=== PATIENT | male | born 1940 | race Caucasian/White ===

== ENCOUNTER 2018-11-10 00:17 | Inpatient (IN) ==
[2018-11-10] MEDS ORDERED: Famotidine 20 MG/2 ML VIAL IVP ONE (00:38)
[2018-11-10] MEDS ORDERED: Ondansetron 4 MG/2 ML VIAL IVP ONE (00:38)
--- NOTE | 2018-11-10 00:39 | Emergency Department Note ---
Disposition Clinical Impression: Vomiting, Dehydration Disposition: Admitted As Inpatient Condition: Fair Time of Disposition: 02:30 Nausea/Vomiting/Diarrhea HPI - General Chief complaint: ED Nausea/Vomiting/Diarrhea Stated complaint: vomiting Time Seen by Provider: 11/10/18 00:17 Source: patient Mode of arrival: ambulatory Limitations: no limitations Nursing Notes Reviewed: Yes Vital Signs Reviewed: Yes - History of Present Illness HPI Narrative: 78-year-old male who Val [employer] earlier today is now having nausea vomiting unable keep anything down vomiting according to the is dark brown in color patient states though is morbidly by Kimberly better taste he states his had some epigastric discomfort denies any rashes lesions denies any blurred vision double loss denies black tarry or melanotic stools patient's been having some generalized myalgias he denies any fever chills trauma denies anything makes it better eating makes it worse is had similar episodes recently all systems have been reviewed and are otherwise negative Pt Subjective Complaint: nausea, vomiting, abdominal pain Onset (ago): hour(s) Description of emesis: food contents If pain, Location of pain: epigastric Severity: moderate Quality: aching Consistency: constant Improves with: nothing Worsens with: eating Context: possible food poisoning (Patient ate fish same range at the [employer] unsure if this is a source for the pain) Associated symptoms: Reports: malaise, nausea/vomiting, weakness. Denies: myalg ias, chest pain, cough, diaphoresis, fever/chills, headaches, loss of appetite, rash, dysuria, shortness of breath, syncope - Related Data Allergies Allergy/AdvReac Type Severity Reaction Status Date / Time No Known Allergies Allergy Verified 11/10/18 00:22 All systems ED: reviewed and negative except as stated. Review of Systems: As Per HPI Constitutional: Reports: weakness. Denies: fever, chills Eyes: Denies: eye pain, eye discharge ENT ED: Denies: ear pain, throat pain Cardiovascular: Denies: chest pain, palpitations Respiratory: Denies: cough, dyspnea, wheezes Gastrointestinal: Reports: abdominal pain, nausea, vomiting Genitourinary: Denies: urgency, dysuria, frequency Musculoskeletal: Denies: back pain, neck pain Integumentary: Denies: rash Neurological: Denies: headache Psychiatric: Denies: anxiety Endocrine: Denies: fatigue Hematological/Lymphatic: Denies: easy bleeding Allergic/Immunologic: Denies: facial swelling Past Medical History - Past Medical History Attestation: Yes The following information was validated with the patient. Source: patient, old records reviewed, nursing notes reviewed Medical history: Reports: no medical history Psychiatric history: Reports: no psych history - Social History Smoking Status: Never smoker Drug use: Reports: none Physical Exam - General Limitations: no limitations General appearance: alert, in no apparent distress - Head Head exam: atraumatic, normocephalic, normal inspection - Eye Eye exam: Present: normal appearance, PERRL, EOMI - ENT ENT exam: normal exam, normal oropharynx, mucous membranes moist, TM's normal bilaterally, normal external ear exam - Neck Neck exam: Present: normal inspection, full ROM, trachea midline - Chest Chest inspection: Present: normal inspection, symmetric chest wall rise - Respiratory Respiratory exam: Present: normal lung sounds bilaterally - Cardiovascular Cardiovascular exam: Present: regular rate, normal rhythm, normal heart sounds - Abdominal Exam Abdominal exam: Present: soft, tenderness, distention, normal bowel sounds. Absent: guarding, rebound, rigidity, mass, pulsatile mass Abdominal tenderness: Present: epigastrium, mild - Rectal Exam Infant Teacher present during exam: No - Expanded Upper Extremity Exam Shoulder exam: Present: normal inspection, full ROM Arm exam: Present: normal inspection, full ROM Elbow exam: Present: normal inspection, full ROM Forearm/Wrist exam: Present: normal inspection, full ROM Hand exam: Present: normal inspection, full ROM Vascular exam: Normal: capillary refill, radial pulse - Expanded Lower Extremity Exam Hip/Pelvis exam: Present: normal inspection, full ROM Upper leg exam: Present: normal inspection, full ROM Knee exam: Present: normal inspection, full ROM Lower leg exam: Present: normal inspection, full ROM Ankle exam: Present: normal inspection, full ROM Foot/toe exam: Present: normal inspection, full ROM Neurovascular/Tendon exam: Present: normal capillary refill, normal fine/light touch. Absent: motor deficit, sensory deficit, tendon deficit Gait: observed and normal - Back Exam Back exam: Present: normal inspection, full ROM. Absent: muscle spasm - Neurological Exam Neurological exam: Present: alert, oriented X3, CN II-XII intact, normal gait - Psychiatric Psychiatric exam: Present: normal affect, normal mood - Skin Skin exam: Present: warm, dry, intact, normal color Course Course Narrative: Patient was seen and evaluated examinations performed patient vomited material appears to be just more of a dirty bile colored though the states that it is brown in color as result patient received Zofran patient is resting comfortably patient will be admitted to observation versus is low transferred to [facility] Vital Signs Temperature 98.0 F 11/10/18 00:17 Pulse Rate 100 11/10/18 00:17 Respiratory Rate 18 11/10/18 00:17 Blood Pressure 147/90 11/10/18 00:17 O2 Sat by Pulse Oximetry 95 11/10/18 00:17 Temperature 98.0 F 11/10/18 00:17 Pulse Rate 98 11/10/18 01:56 Respiratory Rate 16 11/10/18 01:56 Blood Pressure 141/77 11/10/18 01:56 O2 Sat by Pulse Oximetry 95 11/10/18 01:56 Oxygen Delivery Oxygen Delivery Room Air Nausea/Vomiting/Diarrhea - Differential Diagnosis Likely: food poisoning, dehydration - Medical Records Medical records reviewed: Yes I reviewed the patient's medical records. - Lab Data Lab results reviewed: Yes I reviewed the patient's lab results. Result diagrams: 11/10/18 01:00 11/10/18 01:00 Lab Results 11/10/18 11/10/18 11/10/18 Range/Units 01:00 01:00 01:00 WBC 15.4 H (4.3-11.1) K/mcL RBC 5.22 (4.19-5.50) M/mcL Hgb 15.7 (12.9-16.9) g/dL Hct 44.5 (37.5-50.1) % MCV 85.2 (83.0-100.0) fL MCH 30.1 (28.0-33.3) pg MCHC 35.3 (31.6-35.5) g/dL RDW 13.8 (11.5-14.5) % Plt Count 192 (140-400) K/mcL MPV 9.0 L (9.4-12.4) fL Immature Gran % 0.8 (0-4) % Seg Neutrophils % 85.4 % Lymphocytes % 5.6 % Monocytes % 7.9 % Eosinophils % 0.0 % Basophils % 0.3 % Neutrophils # 13.2 H (1.6-8.9) K/mcL Lymphocytes # 0.9 (0.6-4.6) K/mcL Monocytes # 1.2 (0.0-1.3) K/mcL Eosinophils # 0.0 (0.0-0.6) K/mcL Basophils # 0.1 (0.0-0.2) K/mcL PT 15.0 H (9.4-12.1) Seconds INR 1.3 APTT 30.8 (26.0-36.0) Seconds Sodium 135 L (136-145) mEq/L Potassium 3.8 (3.5-5.1) mEq/L Chloride 102 (98-107) mEq/L Carbon Dioxide 23 (23-29) mEq/L BUN 15 (8-23) mg/dL Creatinine 1.02 (0.70-1.30) mg/dL Est GFR ( Amer) > 60 (> 60) Est GFR (Non-Af Amer) > 60 (> 60) BUN/Creatinine Ratio 15 (6-26) Glucose 160 H (70-105) mg/dL Calculated Osmolality 284 (280-300) Calcium 9.1 (8.6-10.3) mg/dL Total Bilirubin 1.4 H (0.3-1.0) mg/dL AST 17 (13-39) Units/L ALT 15 (7-52) Units/L Alkaline Phosphatase 46 (34-104) Units/L Serum Total Protein 7.0 (6.4-8.9) g/dL Albumin 4.2 (3.5-5.7) g/dL Globulin 2.8 (2.4-3.5) g/dL Albumin/Globulin Ratio 1.5 (1.1-2.2) Lipase 42 (11-82) Units/L - Radiology Data Radiology results reviewed: Yes I reviewed the patient's radiology results. ITS Impressions Chest/Abdomen X-ray 11/10/18 00:38 IMPRESSION: 1. No acute cardiopulmonary abnormality. 2. Nonspecific, nonobstructive bowel gas pattern. D/ / Tyson Justice MD / Tyson Justice MD Interpreting Provider: Tyson Justice MD Critical Care Time Critical Care Time: No
[2018-11-10] MEDS ORDERED: 0.9 % Sodium Chloride 1,000 ML IVC SCH (00:45)
[2018-11-10 01:08] LABS: Basophils # 0.1 K/mcL (0.0-0.2); Basophils % 0.3 %; Hematocrit 44.5 % (37.5-50.1); Hemoglobin 15.7 g/dL (12.9-16.9); Immature Granulocytes % 0.8 % (0-4); Lymphocytes # 0.9 K/mcL (0.6-4.6); Lymphocytes % 5.6 %; Mean Corpuscular HGB Conc 35.3 g/dL (31.6-35.5); Mean Corpuscular Hemoglobin 30.1 pg (28.0-33.3); Mean Corpuscular Volume 85.2 fL (83.0-100.0); Monocytes # 1.2 K/mcL (0.0-1.3); Monocytes % 7.9 %; Neutrophils # 13.2 K/mcL (1.6-8.9); Platelet Count 192 K/mcL (140-400); Red Blood Count 5.22 M/mcL (4.19-5.50); Red Cell Distribution Width 13.8 % (11.5-14.5); Segmented Neutrophils % 85.4 %; White Blood Count 15.4 K/mcL (4.3-11.1)
[2018-11-10 01:17] LABS: INR 1.3
[2018-11-10 01:20] LABS: Activated Partial Thrombo Time 30.8 Seconds (26.0-36.0)
[2018-11-10 01:29] LABS: Alanine Aminotransferase 15 Units/L (7-52); Albumin 4.2 g/dL (3.5-5.7); Albumin/Globulin Ratio 1.5 (1.1-2.2); Alkaline Phosphatase 46 Units/L (34-104); Aspartate Amino Transferase 17 Units/L (13-39); BUN/Creatinine Ratio 15 (6-26); Bilirubin,Total 1.4 mg/dL (0.3-1.0); Blood Urea Nitrogen 15 mg/dL (8-23); Calcium 9.1 mg/dL (8.6-10.3); Carbon Dioxide 23 mEq/L (23-29); Chloride 102 mEq/L (98-107); Globulin 2.8 g/dL (2.4-3.5); Glucose 160 mg/dL (70-105); Lipase 42 Units/L (11-82); Osmolality,Calculated 284 (280-300); Potassium 3.8 mEq/L (3.5-5.1); Sodium 135 mEq/L (136-145); eGFR For African Americans > 60 (> 60); eGFR For Non-African Americans > 60 (> 60)
[2018-11-10] MEDS: 0.9 % Sodium Chloride 1,000 ML IVC SCH ×2 (02:48→10:20)
[2018-11-10] MEDS ORDERED: Naloxone 0.4 MG/ML INJ IVP PRN (02:48)
[2018-11-10] MEDS ORDERED: Ondansetron 4 MG/2 ML VIAL IVP PRN (02:48)
[2018-11-10 06:37] LABS: BUN/Creatinine Ratio 14 (6-26); Blood Urea Nitrogen 14 mg/dL (8-23); Calcium 8.7 mg/dL (8.6-10.3); Carbon Dioxide 24 mEq/L (23-29); Chloride 104 mEq/L (98-107); Glucose 130 mg/dL (70-105); Osmolality,Calculated 286 (280-300); Potassium 3.9 mEq/L (3.5-5.1); Sodium 137 mEq/L (136-145); eGFR For African Americans > 60 (> 60); eGFR For Non-African Americans > 60 (> 60)
[2018-11-10 09:13] LABS: Basophils % 0.2 %; Eosinophils % 0.1 %; Hematocrit 41.9 % (37.5-50.1); Hemoglobin 14.4 g/dL (12.9-16.9); Immature Granulocytes % 0.8 % (0-4); Lymphocytes # 1.5 K/mcL (0.6-4.6); Lymphocytes % 9.7 %; Mean Corpuscular HGB Conc 34.4 g/dL (31.6-35.5); Mean Corpuscular Hemoglobin 29.9 pg (28.0-33.3); Mean Corpuscular Volume 86.9 fL (83.0-100.0); Mean Platelet Volume 9.2 fL (9.4-12.4); Monocytes % 6.4 %; Platelet Count 180 K/mcL (140-400); Red Blood Count 4.82 M/mcL (4.19-5.50); Red Cell Distribution Width 14.1 % (11.5-14.5); Segmented Neutrophils % 82.8 %; White Blood Count 15.7 K/mcL (4.3-11.1)
--- NOTE | 2018-11-10 14:08 | Internal Med History&Physical ---
Date of Encounter: 11/10/18 Time of Encounter: 13:30 Assessment and Plan (1) Vomiting Current visit: Yes Status: Acute Suspect viral gastroenteritis. IV fluids will be given. Antiemetics will be used as needed. Qualifiers: Vomiting type: unspecified Vomiting Intractability: non-intractable Nausea presence: unspecified Qualified Code(s): R11.10 - Vomiting, unspecified (2) Multiple falls Current visit: Yes Status: Acute I recommended he follow with his neurologist for additional workup for possible normal pressure hydrocephalus. Internal Medicine - H&P: HPI Chief complaint: Vomiting Admitted From: Emergency Dept Plans for Post Hospital Care: Home History of present illness: Mr. Lou is a 78 year old male who came to emergency room stating he had multiple episodes of vomiting onset approximate 1400 on November 09. He reports at least one episode of vomiting had dark material. A family member told him the dark material might represent blood. Patient came to emergency room and was evaluated and admitted to [facility] for ongoing care needs. He states he has not vomited for approximately 12 hours but is experiencing nausea at this time. He denies any bright red blood or abdominal pain. He reports feeling chilled at home prior to coming to the hospital. He denies disorders of his liver gallbladder or exocrine pancreas. He denies other family members with similar illnesses. He has eaten no unusual foods or had any unusual travel recently. Past Med Surg Social Fam HX - Past Medical History Medical history: no medical history Psychiatric history: no psych history - Past Surgical History Additional surgical history: hernia surgery - Social History Smoking Status: Never smoker Drug use: none Internal Medicine - H&P: Meds Allergy/AdvReac Type Severity Reaction Status Date / Time No Known Allergies Allergy Verified 11/10/18 00:22 All Systems PM: A 10-system review of systems was performed and is negative for pertinent findings except as documented above in the HPI. Review of systems: Gen.: His weight has been stable for several years Cardiovascular: He denies hypertension [place] heart failure angina DVT or pulmonary embolus Respiratory: He is a lifelong nonsmoker and denies chronic lung disease GI: He denies disorders of his liver gallbladder or exocrine pancreas : He has BPH symptoms with frequent urination and occasional urinary incontinence. He denies other kidney bladder prostate disorders Neurologic: He denies large distribution strokes or seizures. He has occasional muscle weakness and frequently feels off balance and has had multiple falls. He had brain MRI 01/19/2016 which showed ventricular prominence with mild diffuse atrophy. He has not seen the [facility] neurologist who ordered the MRI in over 2 years. Endocrine: He was told he had borderline hyperlipidemia in the past. He denies diabetes or thyroid disease Hematology/oncology: He denies blood disorders cancers or anemia Psychiatric: He denies anxiety depression or other mental health issues [place] skeletal: He reports he had a spinal compression fracture in 2016. He denies gout or other bone joint or muscle disorders. - Constitutional Vitals: Temp Pulse Resp BP Pulse Ox 98.6 F 77 18 132/74 95 11/10/18 10:32 11/10/18 10:32 11/10/18 10:32 11/10/18 10:32 11/10/18 10:32 Exam: Gen.: He is a well-developed well-nourished male resting comfortably in bed who appears in no acute distress at present time HEENT: Head is atraumatic and normocephalic. Eyes: EOMI. There is no scleral icterus. Mouth: Mucosa is moist. Neck: Supple and nontender. There is no thyromegaly or adenopathy noted. Heart: Regular without murmurs gallops or ectopics Lungs: No wheezes or crackles are heard. Abdomen: Soft and nontender. Bowel sounds are present. No masses or guarding are noted. Extremities: There is no cyanosis edema or clubbing noted. Dorsalis pedis and posterior tibial pulses are 1-2 over 2 bilaterally. Neurologic: Mental status: He is talkative and a good historian. Cranial nerves: Smile is symmetric. Forehead wrinkles bilaterally. Tongue protrudes midline. EOMI. Motor: There is no pronator drift. Cerebellar: Finger to nose is intact bilaterally. Skin: Warm and dry Internal Med - H&P Results - Labs CBC & Chem 7: 11/10/18 09:04 11/10/18 05:20 Labs: Short CBC 11/10/18 11/10/18 Range/Units 01:00 09:04 WBC 15.4 H 15.7 H (4.3-11.1) K/mcL Hgb 15.7 14.4 (12.9-16.9) g/dL Hct 44.5 41.9 (37.5-50.1) % Plt Count 192 180 (140-400) K/mcL Neutrophils # 13.2 H 13.0 H (1.6-8.9) K/mcL BMP 11/10/18 11/10/18 01:00 05:20 Sodium 135 L 137 Potassium 3.8 3.9 Chloride 102 104 Carbon Dioxide 23 24 BUN 15 14 Creatinine 1.02 0.98 Glucose 160 H 130 H Calcium 9.1 8.7 Liver Function 11/10/18 Range/Units 01:00 Total Bilirubin 1.4 H (0.3-1.0) mg/dL AST 17 (13-39) Units/L ALT 15 (7-52) Units/L Alkaline Phosphatase 46 (34-104) Units/L Albumin 4.2 (3.5-5.7) g/dL - Impressions ITS Impressions Chest/Abdomen X-ray 11/10/18 00:38 IMPRESSION: 1. No acute cardiopulmonary abnormality. 2. Nonspecific, nonobstructive bowel gas pattern. D/ / Tyson Justice MD / Tyson Justice MD Interpreting Provider: Tyson Justice MD Abdomen/Pelvis CT 11/10/18 01:46 Pelvis: Prominent impression upon the bladder by prostate that measures 5.2 x 5.0 cm. Calcification within prostate. No inguinal adenopathy. Peritoneum/Retroperitoneum: No free air. Bones/Soft Tissues: Remote appearing left L4 transverse process fracture. L1 superior endplate fracture, which had been described on report of prior MR dated 02/17/2016. IMPRESSION: No evidence of obstructing renal calculus. Prostatomegaly. Correlate with urologic history. Small hiatal hernia. D/ / Triston Mckeon MD / Triston Mckeon MD Interpreting Provider: Triston Mckeon MD
[2018-11-10] MEDS: Ondansetron 4 MG/2 ML VIAL IVP PRN ×3 (14:14→23:29)
[2018-11-10] MEDS: 0.45 % Sodium Chloride w/KCl 20 MEQ/1,000 ML MLS IVC SCH ×2 (15:06→23:30)
[2018-11-10] MEDS ORDERED: Acetaminophen 325 MG TABLET PO PRN (22:53)
[2018-11-10] MEDS ORDERED: cefTRIAXone 1,000 MG in Water for inj. (sterile) 10 ML IVP ONE (22:55)
[2018-11-11] MEDS ORDERED: *HR* Propranolol 1 MG/ML VIAL IVP STA (00:20)
[2018-11-11] MEDS ORDERED: 0.9 % Sodium Chloride 1,000 ML ONE (00:34)
[2018-11-11] MEDS ORDERED: *HR* Promethazine 25 MG/ML VIAL IM ONE (00:35)
[2018-11-11] MEDS ORDERED: Acetaminophen 325 MG TABLET PO STA (00:45)
[2018-11-11] MEDS ORDERED: Ibuprofen 800 MG TABLET PO STA (00:47)
[2018-11-11 00:52] LABS: Basophils % 0.2 %; Hematocrit 42.4 % (37.5-50.1); Hemoglobin 14.6 g/dL (12.9-16.9); Lymphocytes # 0.9 K/mcL (0.6-4.6); Mean Corpuscular HGB Conc 34.4 g/dL (31.6-35.5); Mean Corpuscular Hemoglobin 29.9 pg (28.0-33.3); Mean Corpuscular Volume 86.9 fL (83.0-100.0); Mean Platelet Volume 9.5 fL (9.4-12.4); Monocytes # 0.6 K/mcL (0.0-1.3); Monocytes % 4.7 %; Neutrophils # 11.5 K/mcL (1.6-8.9); Platelet Count 165 K/mcL (140-400); Red Blood Count 4.88 M/mcL (4.19-5.50); Red Cell Distribution Width 14.1 % (11.5-14.5); Segmented Neutrophils % 87.1 %; White Blood Count 13.2 K/mcL (4.3-11.1)
[2018-11-11 01:01] LABS: Bilirubin,Urine Negative (Negative); Blood,Urine Moderate (Negative); Clarity,Urine Cloudy (Clear); Color,Urine Yellow (Yellow); Glucose,Urine (UA) 100 mg/dL (Normal); Ketones,Urine 40 mg/dL (Negative); Leukocyte Esterase,Urine Trace (Negative); Nitrite,Urine Negative (Negative); Protein,Urine 100 mg/dL (Neg-Trace); Urobilinogen,Urine Normal (Normal)
[2018-11-11 01:04] LABS: Alanine Aminotransferase 20 Units/L (7-52); Albumin 3.7 g/dL (3.5-5.7); Albumin/Globulin Ratio 1.3 (1.1-2.2); Alkaline Phosphatase 49 Units/L (34-104); Aspartate Amino Transferase 31 Units/L (13-39); BUN/Creatinine Ratio 13 (6-26); Bilirubin,Total 1.5 mg/dL (0.3-1.0); Blood Urea Nitrogen 14 mg/dL (8-23); Calcium 8.2 mg/dL (8.6-10.3); Carbon Dioxide 22 mEq/L (23-29); Chloride 104 mEq/L (98-107); Globulin 2.8 g/dL (2.4-3.5); Glucose 148 mg/dL (70-105); Lipase 9 Units/L (11-82); Osmolality,Calculated 279 (280-300); Potassium 4.1 mEq/L (3.5-5.1); Sodium 133 mEq/L (136-145); Total Protein 6.5 g/dL (6.4-8.9); eGFR For African Americans > 60 (> 60); eGFR For Non-African Americans > 60 (> 60)
[2018-11-11] MEDS ORDERED: Isovue-370 500 ML BOTTLE IVP ONE (01:07)
[2018-11-11 01:09] LABS: Granular Casts,Urine Few per lpf (None Seen); Hyaline Casts,Urine Few per lpf (None-Few); Squamous Epithelial Cell,Urine Few per lpf (None-Few)
[2018-11-11 01:10] LABS: Bacteria,Urine Many per hpf (None-Few)
[2018-11-11 01:11] LABS: RBC,Urine 30-50 per hpf (0-3)
[2018-11-11 01:12] LABS: Mucus,Urine Many (Few); WBC,Urine 50-100 per hpf (0-3)
--- NOTE | 2018-11-11 01:39 | Emergency Department Note ---
START Narrative - START START: Responded to a rapid response on this patient that was activated by inpatient nursing staff. On arrival to the floor nursing staff reported that patient has a fever of 106.4 rectally, is tachycardic and less responsive than usual and was trembling. Patient was admitted approximately 24 hours ago with nausea and vomiting with concern for a possible ileus. Nursing staff report patient was advanced to a regular diet during the day today despite having some nausea after clear liquids. He then had some vomiting that they described as projectile earlier this evening around 7 PM. He was given Zofran. Around 11:30 PM he was found to have a fever of 102.6 axillary. He was given 650 mg of Tylenol and Zofran again for reported nausea as well as a gram of Rocephin per the hospitalist's orders. He also ordered Inderal and Solu-Medrol that had not yet been given. Nursing staff report that patient had normal mentation at his last vital check at 11:30. On my arrival patient lying in bed with his eyes closed but responds to voice. He denies any pain. Abdomen is soft and not distended but bowel sounds are diminished. Lungs are clear to auscultation. Heart rate was 125. Blood pressure was 120s/80s. Ice packs were placed in patient's axilla and groin and a cooling blanket was applied. Orders were given for additional Tylenol and ibuprofen as well as chest x-ray and KUB. Blood had been drawn at 11:30 including blood cultures but no lab orders had been received yet other than a BNP and pro-calcitonin ordered previously by the hospitalist. Orders given for CBC, CMP, lipase and lactic acid. Patient will be catheterized for urine as well as he has not had a urinalysis since arrival. With continued questioning patient became more alert and was oriented and recognized staff. With review of systems he does report nausea but denies any abdominal pain still. He did admit to some shortness of breath but cannot tell me when it started. Nursing staff states when they found the patient febrile and shivering his oxygen saturation was 84% on room air. He improved to 95% on 2 L. He did not previously reported any shortness of breath and has had normal oxygen saturations throughout his admission. I spoke to the hospitalist on-call, Dr. Hopkins, to update him on the rapid response, patient condition and all orders that have been given. He did not request any additional orders. Chest x-ray shows only bibasilar atelectasis versus pneumonitis but no obvious focal consolidation. KUB did not show any free air and only nonspecific bowel gas pattern. Will obtain CT scan of the abdomen with contrast. Urinalysis shows some blood and trace leukocyte esterase along with protein, glucose, ketones, moderate blood, many bacteria and 50-100 white blood cells this may be the source of his fever. His white blood cell count is 13.2 which is actually down from 15 shortly after admission. Lactic acid is 1.1. CMP is grossly unchanged compared to admission. Lipase is normal. BNP that was ordered by the hospitalist is 174. CT scan of the abdomen shows some bilateral perinephric stranding that would indicate pyelonephritis. This would correlate with his urinalysis findings. There are no other new changes on the CT scan regarding any source of infection or other acute process. Patient has already received a gram of Rocephin this evening. Temperature continues to come down with active cooling, Tylenol and ibuprofen. Will have nursing staff remove cooling blanket when temperature reaches 100. I talked with nursing staff again advising them of all test results I had reviewed and my impressions. They will continue close monitoring of the patient and will update the hospitalist on all test results. They are advised to contact me again in the ER for any additional needs for this patient.
[2018-11-11] MEDS ORDERED: levoFLOXacin 750 MG/150 ML 750 MG/150 ML BAG IVPB ONE (02:39)
[2018-11-11] MEDS: 0.9 % Sodium Chloride 1,000 ML IV ONE ×2 (03:51→07:27)
[2018-11-11] MEDS ORDERED: 0.45 % Sodium Chloride w/KCl 20 MEQ/1,000 ML MLS IVC SCH (04:15)
[2018-11-11] MEDS ORDERED: methylPREDNISolone 125 MG/2 ML VIAL IVP SCH (08:00)
--- NOTE | 2018-11-11 12:40 | Internal Med Progress Note ---
Date of Encounter: 11/11/18 Time of Encounter: 12:25 - Assessment and plan (1) Pyelonephritis Current Visit: Yes Status: Acute Assessment and plan: Urine and blood cultures have been ordered. Continue empiric IV Rocephin and Levaquin with lactobacillus. (2) Vomiting Current Visit: Yes Status: Acute Assessment and plan: November 11. Now resolved. Continue to monitor. Qualifiers: Vomiting type: unspecified Vomiting Intractability: non-intractable Nausea presence: unspecified Qualified Code(s): R11.10 - Vomiting, unspecified (3) Multiple falls Current Visit: Yes Status: Acute Assessment and plan: November 11. He will follow up with neurologist after discharge for further evaluation for possible NPH. - Subjective Interval history: November 11. He has no new complaints at present time and feels well. Rapid response was called last evening because of fever of 106.4 rectally with decreas ed responsiveness and tachycardia. Workup including abdominal/pelvic CT showed possible pyelonephritis. Rocephin and Levaquin were given IV. Cooling measures were given. He has no new complaints now and feels back to his baseline. - Constitutional Vitals: Temp Pulse Resp BP Pulse Ox 97.5 F L 80 18 109/71 96 11/11/18 10:12 11/11/18 10:12 11/11/18 10:12 11/11/18 10:12 11/11/18 10:12 Exam: He is sitting on the side of the bed resting comfortably. His affect is bright and cheerful. He is appropriate in conversation. I reviewed his medications and lab results. Internal Medicine: Result - Labs CBC & Chem 7: 11/10/18 23:08 11/10/18 23:08 Labs: Short CBC 11/10/18 Range/Units 23:08 WBC 13.2 H (4.3-11.1) K/mcL Hgb 14.6 (12.9-16.9) g/dL Hct 42.4 (37.5-50.1) % Plt Count 165 (140-400) K/mcL Neutrophils # 11.5 H (1.6-8.9) K/mcL BMP 11/10/18 23:08 Sodium 133 L Potassium 4.1 Chloride 104 Carbon Dioxide 22 L BUN 14 Creatinine 1.08 Glucose 148 H Calcium 8.2 L Liver Function 11/10/18 Range/Units 23:08 Total Bilirubin 1.5 H (0.3-1.0) mg/dL AST 31 (13-39) Units/L ALT 20 (7-52) Units/L Alkaline Phosphatase 49 (34-104) Units/L Albumin 3.7 (3.5-5.7) g/dL Urine 11/11/18 Range/Units 00:50 Urine Color Yellow (Yellow) Urine Clarity Cloudy A (Clear) Urine pH 5.0 (5.0-8.0) pH Units Ur Specific Rebuck 1.020 (1.010-1.025) Urine Protein 100 H (Neg-Trace) mg/dL Urine Glucose (UA) 100 H (Normal) mg/dL - ABG Interpretation ABG results: PT/INR, D-dimer PT 15.0 Seconds (9.4-12.1) H 11/10/18 01:00 - Impressions Impressions Chest X-Ray 11/11/18 00:43 IMPRESSION: Bibasilar atelectasis or pneumonitis. Nonspecific bowel gas pattern. Hyperdense sponge like density is seen superior to the left shoulder, potentially artifact though suggest correlation with physical examination to ensure the absence of an underlying supraclavicular mass. D/ / Triston Mckeon MD / Triston Mckeon MD Interpreting Provider: Triston Mckeon MD X-Ray 11/11/18 00:43 IMPRESSION: Bibasilar atelectasis or pneumonitis. Nonspecific bowel gas pattern. Hyperdense sponge like density is seen superior to the left shoulder, potentially artifact though suggest correlation with physical examination to ensure the absence of an underlying supraclavicular mass. D/ / Triston Mckeon MD / Triston Mckeon MD Interpreting Provider: Triston Mckeon MD Abdomen/Pelvis CT 11/11/18 01:07 Pelvis: Prostatomegaly. Prominent impression upon the bladder. No inguinal adenopathy. Peritoneum/Retroperitoneum: No free air. Bones/Soft Tissues: Remote appearing left L4 transverse process fracture. Superior endplate concavity at L1 again noted. IMPRESSION: Trace bilateral pleural effusions with bibasilar atelectasis or pneumonitis. Prostatomegaly. Correlate with urologic history. Suboptimal visualization of the appendix. Mild bilateral perinephric stranding. If there is clinical concern for pyelonephritis, suggest correlation with urinalysis. D/ / Triston Mckeon MD / Triston Mckeon MD Interpreting Provider: Triston Mckeon MD Consult Discharge Plan - Plan Referrals: Sandhya Hewitt, JIGAR [Primary Care Provider] - 1 week
[2018-11-11] MEDS ORDERED: cefTRIAXone 1,000 MG in Water for inj. (sterile) 10 ML IVP SCH (13:00)
[2018-11-11] MEDS: 0.45 % Sodium Chloride w/KCl 20 MEQ/1,000 ML MLS IVC SCH (14:08)
[2018-11-11 16:41] LABS: Acinetobacter baumannii by PCR Not Detected (Not Detect); Candida albicans by PCR Not Detected (Not Detect); Candida glabrata by PCR Not Detected (Not Detect); Candida krusei by PCR Not Detected (Not Detect); Candida parapsilosis by PCR Not Detected (Not Detect); Candida tropicalis by PCR Not Detected (Not Detect); Enterobacter cloacae Cmplx PCR Not Detected (Not Detect); Enterobacteriaceae by PCR DETECTED (Not Detect); Enterococcus by PCR Not Detected (Not Detect); Escherichia coli by PCR DETECTED (Not Detect); Klebsiella oxytoca by PCR Not Detected (Not Detect); Klebsiella pneumoniae by PCR Not Detected (Not Detect); Proteus by PCR Not Detected (Not Detect); Pseudomonas aeruginosa by PCR Not Detected (Not Detect); Serratia marcescens by PCR Not Detected (Not Detect); Staphylococcus aureus by PCR Not Detected (Not Detect); Staphylococcus by PCR Not Detected (Not Detect); Streptococcus agalactiae(B)PCR Not Detected (Not Detect); Streptococcus by PCR Not Detected (Not Detect); Streptococcus pneumoniae PCR Not Detected (Not Detect); Streptococcus pyogenes (A) PCR Not Detected (Not Detect); blaKPC Carbapenem-Resist Gene Not Detected (Not Detect)
[2018-11-11] MEDS: Lactobacillus 1 EACH CAP.SPRINK PO SCH (20:57)
[2018-11-12] MEDS: 0.45 % Sodium Chloride w/KCl 20 MEQ/1,000 ML MLS IVC SCH (03:39)
[2018-11-12] MEDS: *HR* Enoxaparin 40 MG/0.4 ML SYRINGE SQ SCH (05:30)
[2018-11-12 05:36] LABS: Hematocrit 40.2 % (37.5-50.1); Hemoglobin 13.9 g/dL (12.9-16.9); Lymphocytes # 1.3 K/mcL (0.6-4.6); Mean Corpuscular HGB Conc 34.6 g/dL (31.6-35.5); Mean Corpuscular Hemoglobin 29.9 pg (28.0-33.3); Mean Corpuscular Volume 86.5 fL (83.0-100.0); Mean Platelet Volume 9.9 fL (9.4-12.4); Platelet Count 115 K/mcL (140-400); Red Blood Count 4.65 M/mcL (4.19-5.50); Red Cell Distribution Width 14.7 % (11.5-14.5); White Blood Count 10.8 K/mcL (4.3-11.1)
[2018-11-12 06:02] LABS: BUN/Creatinine Ratio 18 (6-26); Blood Urea Nitrogen 16 mg/dL (8-23); Carbon Dioxide 21 mEq/L (23-29); Chloride 107 mEq/L (98-107); Glucose 104 mg/dL (70-105); Osmolality,Calculated 281 (280-300); Potassium 3.9 mEq/L (3.5-5.1); Sodium 135 mEq/L (136-145); eGFR For African Americans > 60 (> 60); eGFR For Non-African Americans > 60 (> 60)
[2018-11-12 06:26] LABS: Monocytes # 1.7 K/mcL (0.0-1.3); Neutrophils # 7.8 K/mcL (1.6-8.9)
[2018-11-12 06:27] LABS: Anisocytosis 1+ (Not Present); Dohle Bodies Present (Not Present); Large Platelets Present (Not Present); Platelet Clumps Few (Not Present); Platelet Estimate Decreased (Normal); Toxic Vacuolation Present (Not Present)
[2018-11-12 06:29] LABS: Poikilocytosis 1+ (Not Present)
[2018-11-12] MEDS: Lactobacillus 1 EACH CAP.SPRINK PO SCH ×2 (09:54→21:03)
--- NOTE | 2018-11-12 10:30 | Internal Med Progress Note ---
Date of Encounter: 11/12/18 Time of Encounter: 10:23 - Assessment and plan (1) Pyelonephritis Current Visit: Yes Status: Acute Assessment and plan: November 11. Urine and blood cultures have been ordered. Continue empiric IV Rocephin and Levaquin with lactobacillus. November 12. Continue IV Rocephin, Levaquin, and Lactobacillus for Escherichia coli. Await final sensitivity report. (2) Vomiting Current Visit: Yes Status: Acute Assessment and plan: November 11. Now resolved. Continue to monitor. Qualifiers: Vomiting type: unspecified Vomiting Intractability: non-intractable Nausea presence: unspecified Qualified Code(s): R11.10 - Vomiting, unspecified (3) Multiple falls Current Visit: Yes Status: Acute Assessment and plan: November 11. He will follow up with neurologist after discharge for further evaluation for possible NPH. - Subjective Interval history: November 11. He has no new complaints at present time and feels well. Rapid response was called last evening because of fever of 106.4 rectally with decreased responsiveness and tachycardia. Workup including abdominal/pelvic CT showed possible pyelonephritis. Rocephin and Levaquin were given IV. Cooling measures were given. He has no new complaints now and feels back to his baseline. November 12. He has no new complaints and feels better. - Constitutional Vitals: Temp Pulse Resp BP Pulse Ox 99.1 F 81 17 154/75 98 11/12/18 06:55 11/12/18 06:55 11/12/18 06:55 11/12/18 06:55 11/12/18 06:55 Exam: He is resting comfortably in bed and appears in no acute distress. His affect is bright and cheerful. I reviewed his medications and lab results. Urine and blood cultures have shown growth of Escherichia coli with sensitivity pending. Internal Medicine: Result - Labs CBC & Chem 7: 11/12/18 05:10 11/12/18 05:10 Labs: Short CBC 11/12/18 Range/Units 05:10 WBC 10.8 (4.3-11.1) K/mcL Hgb 13.9 (12.9-16.9) g/dL Hct 40.2 (37.5-50.1) % Plt Count 115 L (140-400) K/mcL Neutrophils # 7.8 (1.6-8.9) K/mcL BMP 11/12/18 05:10 Sodium 135 L Potassium 3.9 Chloride 107 Carbon Dioxide 21 L BUN 16 Creatinine 0.91 Glucose 104 Calcium 8.0 L Urine 11/11/18 Range/Units 00:50 Urine Color Yellow (Yellow) Urine Clarity Cloudy A (Clear) Urine pH 5.0 (5.0-8.0) pH Units Ur Specific Baker 1.020 (1.010-1.025) Urine Protein 100 H (Neg-Trace) mg/dL Urine Glucose (UA) 100 H (Normal) mg/dL - ABG Interpretation ABG results: PT/INR, D-dimer PT 15.0 Seconds (9.4-12.1) H 11/10/18 01:00 Consult Discharge Plan - Plan Referrals: Sandhya Hewitt, [employer] [Primary Care Provider] - 1 week
[2018-11-12] MEDS ORDERED: cefTRIAXone 1,000 MG in Water for inj. (sterile) 10 ML IVP SCH (14:00)
[2018-11-13] MEDS ORDERED: levoFLOXacin 750 MG/150 ML 750 MG/150 ML BAG IVPB SCH (03:00)
[2018-11-13] MEDS: *HR* Enoxaparin 40 MG/0.4 ML SYRINGE SQ SCH (05:29)
[2018-11-13 06:19] LABS: Basophils # 0.1 K/mcL (0.0-0.2); Basophils % 0.5 %; Eosinophils # 0.2 K/mcL (0.0-0.6); Eosinophils % 1.7 %; Hematocrit 41.9 % (37.5-50.1); Hemoglobin 14.8 g/dL (12.9-16.9); Immature Granulocytes % 0.6 % (0-4); Lymphocytes # 1.3 K/mcL (0.6-4.6); Mean Corpuscular HGB Conc 35.3 g/dL (31.6-35.5); Mean Corpuscular Hemoglobin 30.2 pg (28.0-33.3); Mean Corpuscular Volume 85.5 fL (83.0-100.0); Mean Platelet Volume 10.2 fL (9.4-12.4); Monocytes # 1.2 K/mcL (0.0-1.3); Monocytes % 12.6 %; Neutrophils # 6.7 K/mcL (1.6-8.9); Platelet Count 148 K/mcL (140-400); Red Cell Distribution Width 14.6 % (11.5-14.5); Segmented Neutrophils % 70.6 %; White Blood Count 9.6 K/mcL (4.3-11.1)
[2018-11-13 06:39] LABS: BUN/Creatinine Ratio 19 (6-26); Blood Urea Nitrogen 15 mg/dL (8-23); Calcium 8.3 mg/dL (8.6-10.3); Carbon Dioxide 23 mEq/L (23-29); Chloride 106 mEq/L (98-107); Glucose 108 mg/dL (70-105); Osmolality,Calculated 285 (280-300); Potassium 3.8 mEq/L (3.5-5.1); Sodium 137 mEq/L (136-145); eGFR For African Americans > 60 (> 60); eGFR For Non-African Americans > 60 (> 60)
[2018-11-13 08:04] VITALS: BP 164/106
[2018-11-13] MEDS: Lactobacillus 1 EACH CAP.SPRINK PO SCH (08:25)
--- NOTE | 2018-11-13 09:36 | Discharge Summary ---
Date of Encounter: 11/13/18 Time of Encounter: 09:27 - Discharge Diagnosis (1) Pyelonephritis Priority: Primary Status: Acute (2) Vomiting Priority: Secondary Status: Resolved Qualifiers: Vomiting type: unspecified Vomiting Intractability: non-intractable Nausea presence: unspecified Qualified Code(s): R11.10 - Vomiting, unspecified (3) Multiple falls Priority: Secondary Status: Chronic Hospital course: Mr. Lou is a 78 year old male who came to emergency room stating he had multiple episodes of vomiting onset approximate 1400 on November 09. He reports at least one episode of vomiting had dark material. A family member told him the dark material might represent blood. Patient came to emergency room and was evaluated and admitted to [facility] floor for ongoing care needs. Initial orders were written by the emergency room physician. I saw him on November 10 and performed a history and physical. He was started empirically on IV Rocephin and Levaquin with lactobacillus. Blood cultures and urine culture showed growth of Escherichia coli that was pansensitive to antibiotics on test panel. 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 Intervention was done including antipyretics and his symptoms resolved quickly. He remained afebrile afterward. WBC normalized and there was resolution of left shift by day of discharge. He will continue with oral antibiotic and probiotic for 1 week after discharge. His PCP can determine if additional intervention is needed. Creatinine decreased to 0.80 by November 13. Blood pressure sergio to a level above desirable range. He will be started on Toprol-XL 25 mg daily at discharge and his PCP can monitor. He will be prescribed a front wheeled walker because of frequent falling reported at home. I recommended he follow with his neurologist to have additional evaluation. He will follow with his PCP Sandhya Hewitt CNP within 1 week. - Time Spent with Patient Total time spent providing and/or coordinating discharge services: - Discharge Medications Prescriptions: New Lactobacillus [Culturelle] 1 each PO BID #14 cap.sprink levoFLOXacin [Levaquin] 750 mg PO DAILY #7 tablet Metoprolol XL (24 HR) Succ [Toprol XL] 25 mg PO DAILY #30 tab.er.24h Home Medications: Lactobacillus [Culturelle] 1 each PO BID #14 cap.sprink 11/13/18 [Rx] Metoprolol XL (24 HR) Succ [Toprol XL] 25 mg PO DAILY #30 tab.er.24h 11/13/18 [Rx] levoFLOXacin [Levaquin] 750 mg PO DAILY #7 tablet 11/13/18 [Rx] Allergies/Adverse Reactions: Allergy/AdvReac Type Severity Reaction Status Date / Time No Known Allergies Allergy Verified 11/10/18 00:22 Date of admission: 11/11/18 12:46 Primary care physician: Sandhya Hewitt CNP - Constitutional Vitals: Temp Pulse Resp BP Pulse Ox 98.3 F 79 18 164/106 96 11/13/18 06:38 11/13/18 06:38 11/13/18 06:38 11/13/18 07:35 11/13/18 06:38 - Patient Status Disposition: Home, Self-Care Condition: Fair - Discharge Instructions Follow Up With: Sandhya Hewitt CNP [Primary Care Provider] - 1 week - Diet and Activity Activity: ambulate only with your walker, resume usual activities as tolerated Diet: advance to your usual diet
--- NOTE | 2018-11-13 11:24 | Physician Discharge Referral ---
Home Health/Hosp Referral Info Transfer to: Home Health Attending Provider: Sandeep Provider in Charge Post Discharge: PCP (Sandhya Hewitt CNP) - Diagnosis (1) Pyelonephritis Priority: Primary Status: Acute (2) Vomiting Priority: Secondary Status: Resolved (3) Multiple falls Priority: Secondary Status: Chronic - Respiratory Orders Smoking Cessation: Smoking cessation has been advised. For more information, call the [place] Tobacco Quit Line at 8-337-ADAL-NOW. - Diet/Nutrition Diet/Nutrition Orders: Regular - Activity Activity Orders: Walker - Services Needed Following services are medically necessary services: Nursing, Home Health Aide, Physical Therapy, Occupational Therapy - Transfer Medications Prescriptions: Lactobacillus [Culturelle] 1 each PO BID #14 cap.sprink levoFLOXacin [Levaquin] 750 mg PO DAILY #7 tablet Metoprolol XL (24 HR) Succ [Toprol XL] 25 mg PO DAILY #30 tab.er.24h Home Medications: Lactobacillus [Culturelle] 1 each PO BID #14 cap.sprink 11/13/18 [Rx] Metoprolol XL (24 HR) Succ [Toprol XL] 25 mg PO DAILY #30 tab.er.24h 11/13/18 [Rx] levoFLOXacin [Levaquin] 750 mg PO DAILY #7 tablet 11/13/18 [Rx] Allergies/Adverse Reactions: Allergy/AdvReac Type Severity Reaction Status Date / Time No Known Allergies Allergy Verified 11/10/18 00:22 Certification: Further, I certify that my clinical findings support that this patient is homebound (i.e. absences from home require considerable and taxing effort and are for medical reasons or zoroastrian services or infrequently or short duration when for other reasons) because: Homebound Reason: Leaving home requires considerable and taxing effort due to condition (Impaired ambulation ability secondary to frequent falls) Attestation: My signature below is to certify that this patient is under my care and that I, or nurse practitioner, or a physician's diver assistant working with me, has a [id number] encounter with this patient.
== END 2018-11-13 13:00 | disposition home or self-care (01) | DRG 690 ==
LOC: EMEROOPIK 00:17 → INPPIK 00:17
PROVIDERS: ADMIT Internal Medicine; ATTEND Internal Medicine

== ENCOUNTER 2021-07-27 15:31 | Inpatient (IN) ==
[2021-07-27] MEDS ORDERED: 0.9 % Sodium Chloride 1,000 ML IVC ONE (16:45)
[2021-07-27] MEDS ORDERED: Ondansetron 4 MG/2 ML VIAL IVP ONE (16:45)
[2021-07-27 17:09] LABS: Basophils % 0.3 %; Hematocrit 46.9 % (37.5-50.1); Immature Granulocytes % 0.3 % (0-4); Lymphocytes # 1.1 K/mcL (0.6-4.6); Lymphocytes % 28.4 %; Mean Corpuscular HGB Conc 34.1 g/dL (31.6-35.5); Mean Corpuscular Hemoglobin 29.7 pg (28.0-33.3); Mean Platelet Volume 9.4 fL (9.4-12.4); Monocytes # 0.5 K/mcL (0.0-1.3); Monocytes % 11.8 %; Neutrophils # 2.3 K/mcL (1.6-8.9); Platelet Count 142 K/mcL (140-400); Red Blood Count 5.39 M/mcL (4.19-5.50); Red Cell Distribution Width 13.3 % (11.5-14.5); Segmented Neutrophils % 59.2 %; White Blood Count 3.8 K/mcL (4.3-11.1)
[2021-07-27 17:28] LABS: Alanine Aminotransferase 34 Units/L (7-52); Albumin/Globulin Ratio 1.3 (1.1-2.2); Alkaline Phosphatase 50 Units/L (34-104); Aspartate Amino Transferase 36 Units/L (13-39); BUN/Creatinine Ratio 15 (6-26); Bilirubin,Direct 0.2 mg/dL (0.0-0.2); Bilirubin,Indirect 0.6 mg/dL (0.0-1.0); Bilirubin,Total 0.8 mg/dL (0.3-1.0); Blood Urea Nitrogen 15 mg/dL (8-23); Calcium 8.5 mg/dL (8.6-10.3); Carbon Dioxide 28 mEq/L (23-29); Chloride 98 mEq/L (98-107); Globulin 3.1 g/dL (2.4-3.5); Glucose 112 mg/dL (70-105); Lipase 18 Units/L (11-82); Osmolality,Calculated 282 (280-300); Potassium 3.8 mEq/L (3.5-5.1); Sodium 135 mEq/L (136-145); Total Protein 7.1 g/dL (6.4-8.9); eGFR For African Americans > 60 (> 60); eGFR For Non-African Americans > 60 (> 60)
[2021-07-27 17:29] LABS: Bilirubin,Urine Negative (Negative); Blood,Urine Small (Negative); Clarity,Urine Clear (Clear); Color,Urine Yellow (Yellow); Glucose,Urine (UA) Normal (Normal); Ketones,Urine 15 mg/dL (Negative); Leukocyte Esterase,Urine Negative (Negative); Nitrite,Urine Negative (Negative); PH,Urine 5.5 pH Units (5.0-8.0); Protein,Urine >=300 mg/dL (Neg-Trace); Specific Gravity,Urine >= 1.030 (1.010-1.025); Urobilinogen,Urine Normal (Normal)
[2021-07-27 17:29] LABS: Troponin I < 0.03 ng/mL (< 0.04)
[2021-07-27 17:38] LABS: Squamous Epithelial Cell,Urine Few per hpf (None-Few); WBC,Urine 0-3 per hpf (0-3)
[2021-07-27 17:39] LABS: Mucus,Urine Few per lpf (None-Few)
[2021-07-27] MEDS ORDERED: Naloxone 0.4 MG/ML INJ IVP PRN (19:52)
[2021-07-27] MEDS ORDERED: Ondansetron 4 MG/2 ML VIAL IVP PRN (19:52)
[2021-07-27] MEDS: Acetaminophen 325 MG TABLET PO PRN (21:28)
[2021-07-27] MEDS: 0.9 % Sodium Chloride 1,000 ML IVC SCH (21:29)
[2021-07-28] MEDS: *HR* Enoxaparin 40 MG/0.4 ML SYRINGE SQ SCH (05:35)
[2021-07-28 07:20] LABS: Basophils % 0.6 %; Hematocrit 43.4 % (37.5-50.1); Immature Granulocytes % 0.3 % (0-4); Lymphocytes # 1.3 K/mcL (0.6-4.6); Lymphocytes % 37.9 %; Mean Corpuscular HGB Conc 34.6 g/dL (31.6-35.5); Mean Corpuscular Volume 86.8 fL (83.0-100.0); Mean Platelet Volume 9.8 fL (9.4-12.4); Monocytes # 0.4 K/mcL (0.0-1.3); Monocytes % 10.2 %; Platelet Count 122 K/mcL (140-400); Red Cell Distribution Width 13.6 % (11.5-14.5); White Blood Count 3.4 K/mcL (4.3-11.1)
[2021-07-28 07:23] LABS: Neutrophils # 1.7 K/mcL (1.6-8.9)
[2021-07-28] MEDS ORDERED: Benzonatate 100 MG CAPSULE PO PRN (07:32)
[2021-07-28 07:52] LABS: BUN/Creatinine Ratio 16 (6-26); Blood Urea Nitrogen 15 mg/dL (8-23); Calcium 7.9 mg/dL (8.6-10.3); Carbon Dioxide 28 mEq/L (23-29); Chloride 104 mEq/L (98-107); Glucose 87 mg/dL (70-105); Magnesium 1.9 mg/dL (1.6-2.6); Osmolality,Calculated 284 (280-300); Potassium 4.1 mEq/L (3.5-5.1); Sodium 137 mEq/L (136-145); eGFR For African Americans > 60 (> 60); eGFR For Non-African Americans > 60 (> 60)
[2021-07-28] MEDS: Cholecalciferol (D-3) 1,000 UNIT (25MCG) TABLET PO SCH (08:20)
[2021-07-28] MEDS: Metoprolol XL (24 HR) Succ 25 MG TAB.ER.24H PO SCH (08:20)
[2021-07-28] MEDS ORDERED: lisinopriL 5 MG TABLET PO SCH (09:00)
[2021-07-28] MEDS ORDERED: *HR* Promethazine 25 MG/ML VIAL IM ONE (15:32)
[2021-07-28] MEDS: 0.9 % Sodium Chloride 1,000 ML IVC SCH (15:58)
[2021-07-28] MEDS: Acetaminophen 325 MG TABLET PO PRN (17:07)
[2021-07-28] MEDS ORDERED: Ondansetron 4 MG/2 ML VIAL IVP PRN (17:43)
[2021-07-29] MEDS: *HR* Enoxaparin 40 MG/0.4 ML SYRINGE SQ SCH (05:22)
[2021-07-29 07:43] LABS: Basophils % 0.3 %; Hematocrit 40.8 % (37.5-50.1); Hemoglobin 14.2 g/dL (12.9-16.9); Immature Granulocytes % 0.3 % (0-4); Lymphocytes # 1.2 K/mcL (0.6-4.6); Lymphocytes % 33.3 %; Mean Corpuscular HGB Conc 34.8 g/dL (31.6-35.5); Mean Corpuscular Hemoglobin 29.8 pg (28.0-33.3); Mean Corpuscular Volume 85.5 fL (83.0-100.0); Mean Platelet Volume 9.4 fL (9.4-12.4); Monocytes # 0.4 K/mcL (0.0-1.3); Monocytes % 10.7 %; Platelet Count 118 K/mcL (140-400); Red Blood Count 4.77 M/mcL (4.19-5.50); Red Cell Distribution Width 13.3 % (11.5-14.5); Segmented Neutrophils % 55.4 %; White Blood Count 3.6 K/mcL (4.3-11.1)
[2021-07-29 08:05] LABS: BUN/Creatinine Ratio 15 (6-26); Blood Urea Nitrogen 11 mg/dL (8-23); Calcium 7.8 mg/dL (8.6-10.3); Carbon Dioxide 26 mEq/L (23-29); Chloride 104 mEq/L (98-107); Glucose 105 mg/dL (70-105); Osmolality,Calculated 282 (280-300); Potassium 3.6 mEq/L (3.5-5.1); Sodium 136 mEq/L (136-145); eGFR For African Americans > 60 (> 60); eGFR For Non-African Americans > 60 (> 60)
[2021-07-29] MEDS: Docusate Oral Soln 100 MG/10 ML UDC PO SCH (09:46)
[2021-07-29] MEDS: Cholecalciferol (D-3) 1,000 UNIT (25MCG) TABLET PO SCH (09:47)
[2021-07-29] MEDS: Acetaminophen 325 MG TABLET PO PRN (09:47)
[2021-07-29] MEDS: Metoprolol XL (24 HR) Succ 25 MG TAB.ER.24H PO SCH (09:47)
[2021-07-29] MEDS: lisinopriL 10 MG TABLET PO SCH (09:47)
[2021-07-30] MEDS: *HR* Enoxaparin 40 MG/0.4 ML SYRINGE SQ SCH (05:33)
[2021-07-30 08:56] LABS: Basophils % 0.3 %; Hematocrit 45.7 % (37.5-50.1); Hemoglobin 15.8 g/dL (12.9-16.9); Immature Granulocytes % 0.6 % (0-4); Lymphocytes % 27.9 %; Mean Corpuscular HGB Conc 34.6 g/dL (31.6-35.5); Mean Corpuscular Hemoglobin 29.8 pg (28.0-33.3); Mean Corpuscular Volume 86.2 fL (83.0-100.0); Mean Platelet Volume 10.1 fL (9.4-12.4); Monocytes # 0.3 K/mcL (0.0-1.3); Monocytes % 9.6 %; Neutrophils # 2.1 K/mcL (1.6-8.9); Platelet Count 125 K/mcL (140-400); Red Cell Distribution Width 13.4 % (11.5-14.5); Segmented Neutrophils % 61.6 %; White Blood Count 3.4 K/mcL (4.3-11.1)
[2021-07-30 08:58] LABS: BUN/Creatinine Ratio 17 (6-26); Blood Urea Nitrogen 13 mg/dL (8-23); Calcium 8.4 mg/dL (8.6-10.3); Carbon Dioxide 27 mEq/L (23-29); Chloride 101 mEq/L (98-107); Glucose 107 mg/dL (70-105); Osmolality,Calculated 283 (280-300); Potassium 3.8 mEq/L (3.5-5.1); Sodium 136 mEq/L (136-145); eGFR For African Americans > 60 (> 60); eGFR For Non-African Americans > 60 (> 60)
[2021-07-30] MEDS: Docusate Oral Soln 100 MG/10 ML UDC PO SCH (11:38)
[2021-07-30] MEDS: Cholecalciferol (D-3) 1,000 UNIT (25MCG) TABLET PO SCH (11:40)
[2021-07-30] MEDS: Metoprolol XL (24 HR) Succ 25 MG TAB.ER.24H PO SCH (11:40)
[2021-07-30] MEDS: lisinopriL 10 MG TABLET PO SCH (11:40)
[2021-07-31] MEDS: *HR* Enoxaparin 40 MG/0.4 ML SYRINGE SQ SCH (05:14)
[2021-07-31 07:29] VITALS: RESP 18
[2021-07-31 09:47] LABS: Basophils % 0.3 %; Hematocrit 46.7 % (37.5-50.1); Hemoglobin 15.9 g/dL (12.9-16.9); Immature Granulocytes % 0.5 % (0-4); Mean Corpuscular Hemoglobin 29.5 pg (28.0-33.3); Mean Corpuscular Volume 86.6 fL (83.0-100.0); Mean Platelet Volume 10.2 fL (9.4-12.4); Monocytes # 0.4 K/mcL (0.0-1.3); Monocytes % 8.8 %; Neutrophils # 2.6 K/mcL (1.6-8.9); Platelet Count 134 K/mcL (140-400); Red Blood Count 5.39 M/mcL (4.19-5.50); Red Cell Distribution Width 13.6 % (11.5-14.5); Segmented Neutrophils % 64.4 %
[2021-07-31 10:03] LABS: BUN/Creatinine Ratio 23 (6-26); Blood Urea Nitrogen 17 mg/dL (8-23); Calcium 8.5 mg/dL (8.6-10.3); Carbon Dioxide 28 mEq/L (23-29); Chloride 100 mEq/L (98-107); Glucose 105 mg/dL (70-105); Osmolality,Calculated 284 (280-300); Potassium 3.9 mEq/L (3.5-5.1); Sodium 136 mEq/L (136-145); eGFR For African Americans > 60 (> 60); eGFR For Non-African Americans > 60 (> 60)
[2021-07-31] MEDS: Docusate Oral Soln 100 MG/10 ML UDC PO SCH (10:26)
[2021-07-31] MEDS: Cholecalciferol (D-3) 1,000 UNIT (25MCG) TABLET PO SCH (10:26)
[2021-07-31] MEDS: lisinopriL 10 MG TABLET PO SCH (10:27)
[2021-07-31] MEDS: Metoprolol XL (24 HR) Succ 25 MG TAB.ER.24H PO SCH (10:27)
[2021-07-31 11:47] VITALS: BP 178/72; PULSE 72; TEMP 99.5; O2SAT 93
== END 2021-07-31 18:56 | disposition other institution (70) | DRG 177 ==
LOC: EMEROOPIK 15:31 → INPPIK 15:31
PROVIDERS: ADMIT Family Medicine; ATTEND Family Medicine

== ENCOUNTER 2021-07-31 15:31 | Inpatient (IN) ==
[2021-07-31] MEDS ORDERED: Benzonatate 100 MG CAPSULE PO PRN (18:57)
[2021-08-01] MEDS: *HR* Enoxaparin 40 MG/0.4 ML SYRINGE SQ SCH (05:32)
[2021-08-01 07:49] LABS: Basophils % 0.2 %; Hematocrit 44.2 % (37.5-50.1); Hemoglobin 15.1 g/dL (12.9-16.9); Immature Granulocytes % 0.4 % (0-4); Lymphocytes # 0.9 K/mcL (0.6-4.6); Lymphocytes % 19.3 %; Mean Corpuscular HGB Conc 34.2 g/dL (31.6-35.5); Mean Corpuscular Hemoglobin 29.5 pg (28.0-33.3); Mean Corpuscular Volume 86.3 fL (83.0-100.0); Monocytes # 0.4 K/mcL (0.0-1.3); Monocytes % 7.6 %; Neutrophils # 3.5 K/mcL (1.6-8.9); Platelet Count 149 K/mcL (140-400); Red Blood Count 5.12 M/mcL (4.19-5.50); Red Cell Distribution Width 13.6 % (11.5-14.5); Segmented Neutrophils % 72.5 %; White Blood Count 4.9 K/mcL (4.3-11.1)
[2021-08-01 08:07] LABS: BUN/Creatinine Ratio 23 (6-26); Blood Urea Nitrogen 19 mg/dL (8-23); Calcium 8.2 mg/dL (8.6-10.3); Carbon Dioxide 27 mEq/L (23-29); Chloride 102 mEq/L (98-107); Glucose 114 mg/dL (70-105); Osmolality,Calculated 285 (280-300); Potassium 3.7 mEq/L (3.5-5.1); Sodium 136 mEq/L (136-145); eGFR For African Americans > 60 (> 60); eGFR For Non-African Americans > 60 (> 60)
[2021-08-01] MEDS: Metoprolol XL (24 HR) Succ 25 MG TAB.ER.24H PO SCH (09:24)
[2021-08-01] MEDS: Cholecalciferol (D-3) 1,000 UNIT (25MCG) TABLET PO SCH (09:24)
[2021-08-01] MEDS: lisinopriL 10 MG TABLET PO SCH (09:24)
[2021-08-02] MEDS: *HR* Enoxaparin 40 MG/0.4 ML SYRINGE SQ SCH (05:47)
[2021-08-02] MEDS: lisinopriL 10 MG TABLET PO SCH (08:37)
[2021-08-02] MEDS: Multivit/Ca/Min/Fe/FA 1 TAB TABLET PO SCH (08:38)
[2021-08-02] MEDS: Cholecalciferol (D-3) 1,000 UNIT (25MCG) TABLET PO SCH (08:38)
[2021-08-02] MEDS: Metoprolol XL (24 HR) Succ 25 MG TAB.ER.24H PO SCH (08:38)
[2021-08-02] MEDS ORDERED: Cyanocobalamin (B-12) 1,000 MCG TABLET PO SCH (09:00)
[2021-08-03] MEDS: *HR* Enoxaparin 40 MG/0.4 ML SYRINGE SQ SCH (05:47)
[2021-08-03] MEDS: lisinopriL 10 MG TABLET PO SCH (08:36)
[2021-08-03] MEDS: Metoprolol XL (24 HR) Succ 25 MG TAB.ER.24H PO SCH (08:36)
[2021-08-03] MEDS: Multivit/Ca/Min/Fe/FA 1 TAB TABLET PO SCH (08:36)
[2021-08-03] MEDS: Cholecalciferol (D-3) 1,000 UNIT (25MCG) TABLET PO SCH (08:36)
[2021-08-03] MEDS ORDERED: Isovue-370 500 ML BOTTLE IVP ONE (13:37)
[2021-08-03] MEDS: Sennosides/Docusate Sodium TABLET PO SCH (22:32)
[2021-08-04] MEDS: *HR* Enoxaparin 40 MG/0.4 ML SYRINGE SQ SCH (06:33)
[2021-08-04] MEDS: Multivit/Ca/Min/Fe/FA 1 TAB TABLET PO SCH (09:03)
[2021-08-04] MEDS: Metoprolol XL (24 HR) Succ 25 MG TAB.ER.24H PO SCH (09:03)
[2021-08-04] MEDS: lisinopriL 20 MG TABLET PO SCH (09:04)
[2021-08-04] MEDS: Sennosides/Docusate Sodium TABLET PO SCH ×2 (09:04→21:09)
[2021-08-04] MEDS: Cholecalciferol (D-3) 1,000 UNIT (25MCG) TABLET PO SCH (09:04)
[2021-08-04] MEDS: Acetaminophen 325 MG TABLET PO PRN (21:41)
[2021-08-05] MEDS: Acetaminophen 325 MG TABLET PO PRN ×3 (05:33→17:55)
[2021-08-05] MEDS: *HR* Enoxaparin 40 MG/0.4 ML SYRINGE SQ SCH (05:34)
[2021-08-05] MEDS: Sennosides/Docusate Sodium TABLET PO SCH ×2 (08:37→20:57)
[2021-08-05] MEDS: lisinopriL 20 MG TABLET PO SCH (08:37)
[2021-08-05] MEDS: Multivit/Ca/Min/Fe/FA 1 TAB TABLET PO SCH (08:37)
[2021-08-05] MEDS: Metoprolol XL (24 HR) Succ 25 MG TAB.ER.24H PO SCH (08:37)
[2021-08-05] MEDS: Cholecalciferol (D-3) 1,000 UNIT (25MCG) TABLET PO SCH (08:37)
[2021-08-05 10:11] LABS: Basophils % 0.2 %; Eosinophils % 0.5 %; Hematocrit 43.6 % (37.5-50.1); Hemoglobin 14.7 g/dL (12.9-16.9); Immature Granulocytes % 0.9 % (0-4); Lymphocytes # 0.9 K/mcL (0.6-4.6); Lymphocytes % 15.8 %; Mean Corpuscular HGB Conc 33.7 g/dL (31.6-35.5); Mean Corpuscular Hemoglobin 29.6 pg (28.0-33.3); Mean Corpuscular Volume 87.7 fL (83.0-100.0); Mean Platelet Volume 9.4 fL (9.4-12.4); Monocytes # 0.2 K/mcL (0.0-1.3); Monocytes % 4.3 %; Neutrophils # 4.4 K/mcL (1.6-8.9); Platelet Count 246 K/mcL (140-400); Red Blood Count 4.97 M/mcL (4.19-5.50); Red Cell Distribution Width 14.2 % (11.5-14.5); Segmented Neutrophils % 78.3 %; White Blood Count 5.6 K/mcL (4.3-11.1)
[2021-08-05 10:31] LABS: BUN/Creatinine Ratio 25 (6-26); Blood Urea Nitrogen 23 mg/dL (8-23); Calcium 8.4 mg/dL (8.6-10.3); Carbon Dioxide 27 mEq/L (23-29); Chloride 100 mEq/L (98-107); Glucose 138 mg/dL (70-105); Osmolality,Calculated 286 (280-300); Potassium 3.8 mEq/L (3.5-5.1); Sodium 135 mEq/L (136-145); eGFR For African Americans > 60 (> 60); eGFR For Non-African Americans > 60 (> 60)
[2021-08-05 14:57] LABS: Bilirubin,Urine Moderate (Negative); Blood,Urine Small (Negative); Clarity,Urine Slightly Cloudy (Clear); Color,Urine Amber (Yellow); Glucose,Urine (UA) Normal (Normal); Ketones,Urine Trace mg/dL (Negative); Leukocyte Esterase,Urine Negative (Negative); Nitrite,Urine Negative (Negative); PH,Urine 5.5 pH Units (5.0-8.0); Protein,Urine 100 mg/dL (Neg-Trace); Specific Gravity,Urine 1.025 (1.010-1.025)
[2021-08-05 15:07] LABS: Amorphous Sediment,Urine Moderate per hpf (None-Few); Bacteria,Urine Few per hpf (None-Few); Squamous Epithelial Cell,Urine Few per hpf (None-Few)
[2021-08-05] MEDS: 0.9 % Sodium Chloride 1,000 ML IVC SCH ×2 (18:00→23:59)
[2021-08-05] MEDS ORDERED: Ipratropium/Albuterol Neb 3 ML IH PRN (23:27)
[2021-08-06] MEDS: Acetaminophen 325 MG TABLET PO PRN ×2 (02:56→15:21)
[2021-08-06] MEDS ORDERED: Ipratropium 1 PUFF INHALER IH SCH (04:00)
[2021-08-06] MEDS: *HR* Enoxaparin 40 MG/0.4 ML SYRINGE SQ SCH (04:37)
[2021-08-06 04:59] LABS: Eosinophils % 0.2 %; Hematocrit 38.5 % (37.5-50.1); Hemoglobin 12.9 g/dL (12.9-16.9); Immature Granulocytes % 0.6 % (0-4); Lymphocytes % 19.2 %; Mean Corpuscular HGB Conc 33.5 g/dL (31.6-35.5); Mean Corpuscular Hemoglobin 29.1 pg (28.0-33.3); Mean Corpuscular Volume 86.7 fL (83.0-100.0); Mean Platelet Volume 9.5 fL (9.4-12.4); Monocytes # 0.3 K/mcL (0.0-1.3); Monocytes % 6.8 %; Neutrophils # 3.7 K/mcL (1.6-8.9); Platelet Count 226 K/mcL (140-400); Red Blood Count 4.44 M/mcL (4.19-5.50); Red Cell Distribution Width 14.2 % (11.5-14.5); Segmented Neutrophils % 73.2 %
[2021-08-06 06:18] LABS: Alanine Aminotransferase 153 Units/L (7-52); Albumin 2.6 g/dL (3.5-5.7); Albumin/Globulin Ratio 0.9 (1.1-2.2); Alkaline Phosphatase 122 Units/L (34-104); Aspartate Amino Transferase 85 Units/L (13-39); BUN/Creatinine Ratio 25 (6-26); Bilirubin,Total 1.5 mg/dL (0.3-1.0); Blood Urea Nitrogen 18 mg/dL (8-23); Calcium 7.7 mg/dL (8.6-10.3); Carbon Dioxide 21 mEq/L (23-29); Chloride 106 mEq/L (98-107); Glucose 113 mg/dL (70-105); Osmolality,Calculated 287 (280-300); Potassium 3.7 mEq/L (3.5-5.1); Sodium 137 mEq/L (136-145); Total Protein 5.6 g/dL (6.4-8.9); eGFR For African Americans > 60 (> 60); eGFR For Non-African Americans > 60 (> 60)
[2021-08-06] MEDS: 0.9 % Sodium Chloride 1,000 ML IVC SCH (08:24)
[2021-08-06] MEDS: Multivit/Ca/Min/Fe/FA 1 TAB TABLET PO SCH (08:24)
[2021-08-06] MEDS: Cholecalciferol (D-3) 1,000 UNIT (25MCG) TABLET PO SCH (08:24)
[2021-08-06] MEDS: lisinopriL 20 MG TABLET PO SCH (08:24)
[2021-08-06] MEDS: Metoprolol XL (24 HR) Succ 25 MG TAB.ER.24H PO SCH (08:24)
[2021-08-06] MEDS: Sennosides/Docusate Sodium TABLET PO SCH (08:24)
[2021-08-06] MEDS ORDERED: Ipratropium 1 PUFF INHALER IH PRN (08:30)
[2021-08-06] MEDS ORDERED: levoFLOXacin 750 MG TABLET PO SCH (09:00)
[2021-08-06] MEDS ORDERED: Megestrol Acetate 400 MG/10 ML UDC PO SCH (12:30)
[2021-08-06 15:12] VITALS: O2SAT 93
[2021-08-06] MEDS ORDERED: Furosemide 20 MG/2 ML VIAL IVP ONE (15:14)
[2021-08-06] MEDS ORDERED: MethylPREDNISolone 40 MG/ML VIAL IVP SCH (16:00)
[2021-08-06 16:09] VITALS: BP 169/80; PULSE 106; RESP 22; TEMP 99.2
== END 2021-08-06 17:12 | disposition short-term general hospital (02) ==
LOC: INPPIK 18:59
PROVIDERS: ADMIT Family Medicine; ATTEND Family Medicine

== ENCOUNTER 2021-08-10 16:22 | Inpatient (IN) ==
[2021-08-10] MEDS: Metoprolol XL (24 HR) Succ 25 MG TAB.ER.24H PO SCH (21:45)
[2021-08-10] MEDS: Lactobacillus 1 EACH CAP.SPRINK PO SCH (21:45)
[2021-08-11 05:57] LABS: Basophils % 0.2 %; Eosinophils # 0.2 K/mcL (0.0-0.6); Hematocrit 38.3 % (37.5-50.1); Hemoglobin 13.2 g/dL (12.9-16.9); Immature Granulocytes % 5.7 % (0-4); Lymphocytes # 1.5 K/mcL (0.6-4.6); Lymphocytes % 17.9 %; Mean Corpuscular HGB Conc 34.5 g/dL (31.6-35.5); Mean Corpuscular Hemoglobin 29.6 pg (28.0-33.3); Mean Corpuscular Volume 85.9 fL (83.0-100.0); Mean Platelet Volume 9.9 fL (9.4-12.4); Monocytes # 0.8 K/mcL (0.0-1.3); Monocytes % 9.5 %; Neutrophils # 5.3 K/mcL (1.6-8.9); Platelet Count 347 K/mcL (140-400); Red Blood Count 4.46 M/mcL (4.19-5.50); Red Cell Distribution Width 14.9 % (11.5-14.5); Segmented Neutrophils % 64.7 %; White Blood Count 8.2 K/mcL (4.3-11.1)
[2021-08-11 06:17] LABS: BUN/Creatinine Ratio 23 (6-26); Blood Urea Nitrogen 17 mg/dL (8-23); Calcium 8.4 mg/dL (8.6-10.3); Carbon Dioxide 24 mEq/L (23-29); Chloride 104 mEq/L (98-107); Glucose 106 mg/dL (70-105); Osmolality,Calculated 284 (280-300); Potassium 3.4 mEq/L (3.5-5.1); Sodium 136 mEq/L (136-145); eGFR For African Americans > 60 (> 60); eGFR For Non-African Americans > 60 (> 60)
[2021-08-11] MEDS: Metoprolol XL (24 HR) Succ 25 MG TAB.ER.24H PO SCH ×2 (09:35→21:54)
[2021-08-11] MEDS: lisinopriL 5 MG TABLET PO SCH (09:35)
[2021-08-11] MEDS: levoFLOXacin 750 MG TABLET PO SCH (09:35)
[2021-08-11] MEDS: Cholecalciferol (D-3) 1,000 UNIT (25MCG) TABLET PO SCH (09:35)
[2021-08-11] MEDS: Multivit/Ca/Min/Fe/FA 1 TAB TABLET PO SCH (09:35)
[2021-08-11] MEDS: Lactobacillus 1 EACH CAP.SPRINK PO SCH ×2 (09:36→21:46)
[2021-08-11] MEDS ORDERED: Potassium Chloride Elixir 20 MEQ/15 ML UDC PO ONE (12:37)
[2021-08-12] MEDS: *HR* Enoxaparin 40 MG/0.4 ML SYRINGE SQ SCH (05:08)
[2021-08-12] MEDS: Cholecalciferol (D-3) 1,000 UNIT (25MCG) TABLET PO SCH (09:11)
[2021-08-12] MEDS: Lactobacillus 1 EACH CAP.SPRINK PO SCH ×2 (09:11→22:06)
[2021-08-12] MEDS: levoFLOXacin 750 MG TABLET PO SCH (09:12)
[2021-08-12] MEDS: lisinopriL 5 MG TABLET PO SCH (09:14)
[2021-08-12] MEDS: Multivit/Ca/Min/Fe/FA 1 TAB TABLET PO SCH (09:15)
[2021-08-12] MEDS: Metoprolol XL (24 HR) Succ 25 MG TAB.ER.24H PO SCH ×2 (09:16→22:06)
[2021-08-13] MEDS: *HR* Enoxaparin 40 MG/0.4 ML SYRINGE SQ SCH (06:06)
[2021-08-13] MEDS: Lactobacillus 1 EACH CAP.SPRINK PO SCH ×2 (08:03→21:14)
[2021-08-13] MEDS: levoFLOXacin 750 MG TABLET PO SCH (08:04)
[2021-08-13] MEDS: Cholecalciferol (D-3) 1,000 UNIT (25MCG) TABLET PO SCH (08:06)
[2021-08-13] MEDS: Multivit/Ca/Min/Fe/FA 1 TAB TABLET PO SCH (08:06)
[2021-08-13] MEDS: Metoprolol XL (24 HR) Succ 25 MG TAB.ER.24H PO SCH ×2 (08:07→21:14)
[2021-08-13] MEDS: lisinopriL 5 MG TABLET PO SCH (08:09)
[2021-08-13] MEDS: Acetaminophen 325 MG TABLET PO PRN (15:16)
[2021-08-14] MEDS: *HR* Enoxaparin 40 MG/0.4 ML SYRINGE SQ SCH (05:43)
[2021-08-14] MEDS: levoFLOXacin 750 MG TABLET PO SCH (09:08)
[2021-08-14] MEDS: Multivit/Ca/Min/Fe/FA 1 TAB TABLET PO SCH (09:10)
[2021-08-14] MEDS: Cholecalciferol (D-3) 1,000 UNIT (25MCG) TABLET PO SCH (09:10)
[2021-08-14] MEDS: lisinopriL 5 MG TABLET PO SCH (09:11)
[2021-08-14] MEDS: Metoprolol XL (24 HR) Succ 25 MG TAB.ER.24H PO SCH ×2 (09:12→19:41)
[2021-08-14] MEDS: Lactobacillus 1 EACH CAP.SPRINK PO SCH ×2 (09:12→19:40)
[2021-08-15] MEDS: *HR* Enoxaparin 40 MG/0.4 ML SYRINGE SQ SCH (05:13)
[2021-08-15] MEDS: Metoprolol XL (24 HR) Succ 25 MG TAB.ER.24H PO SCH ×2 (08:06→22:17)
[2021-08-15] MEDS: Lactobacillus 1 EACH CAP.SPRINK PO SCH ×2 (08:06→22:17)
[2021-08-15] MEDS: Cholecalciferol (D-3) 1,000 UNIT (25MCG) TABLET PO SCH (08:06)
[2021-08-15] MEDS: levoFLOXacin 750 MG TABLET PO SCH (08:06)
[2021-08-15] MEDS: Multivit/Ca/Min/Fe/FA 1 TAB TABLET PO SCH (08:07)
[2021-08-15] MEDS: lisinopriL 5 MG TABLET PO SCH (08:07)
[2021-08-16] MEDS: *HR* Enoxaparin 40 MG/0.4 ML SYRINGE SQ SCH (05:47)
[2021-08-16] MEDS: Metoprolol XL (24 HR) Succ 25 MG TAB.ER.24H PO SCH ×2 (08:56→19:45)
[2021-08-16] MEDS: levoFLOXacin 750 MG TABLET PO SCH (08:56)
[2021-08-16] MEDS: lisinopriL 5 MG TABLET PO SCH (08:57)
[2021-08-16] MEDS: Lactobacillus 1 EACH CAP.SPRINK PO SCH ×2 (08:57→19:45)
[2021-08-16] MEDS: Cholecalciferol (D-3) 1,000 UNIT (25MCG) TABLET PO SCH (08:57)
[2021-08-16] MEDS: Multivit/Ca/Min/Fe/FA 1 TAB TABLET PO SCH (08:57)
[2021-08-17] MEDS: *HR* Enoxaparin 40 MG/0.4 ML SYRINGE SQ SCH (05:34)
[2021-08-17] MEDS: Lactobacillus 1 EACH CAP.SPRINK PO SCH ×2 (08:17→21:09)
[2021-08-17] MEDS: Metoprolol XL (24 HR) Succ 25 MG TAB.ER.24H PO SCH ×2 (08:17→21:09)
[2021-08-17] MEDS: Cholecalciferol (D-3) 1,000 UNIT (25MCG) TABLET PO SCH (08:17)
[2021-08-17] MEDS: Multivit/Ca/Min/Fe/FA 1 TAB TABLET PO SCH (08:17)
[2021-08-17] MEDS: lisinopriL 5 MG TABLET PO SCH (08:17)
[2021-08-18] MEDS: *HR* Enoxaparin 40 MG/0.4 ML SYRINGE SQ SCH (05:35)
[2021-08-18 06:32] LABS: Basophils # 0.1 K/mcL (0.0-0.2); Basophils % 1.1 %; Eosinophils # 0.2 K/mcL (0.0-0.6); Hematocrit 41.5 % (37.5-50.1); Hemoglobin 13.8 g/dL (12.9-16.9); Immature Granulocytes % 4.4 % (0-4); Lymphocytes # 2.3 K/mcL (0.6-4.6); Lymphocytes % 20.5 %; Mean Corpuscular HGB Conc 33.3 g/dL (31.6-35.5); Mean Corpuscular Hemoglobin 29.1 pg (28.0-33.3); Mean Corpuscular Volume 87.4 fL (83.0-100.0); Mean Platelet Volume 9.8 fL (9.4-12.4); Monocytes # 1.3 K/mcL (0.0-1.3); Monocytes % 11.5 %; Neutrophils # 6.6 K/mcL (1.6-8.9); Platelet Count 336 K/mcL (140-400); Red Blood Count 4.75 M/mcL (4.19-5.50); Red Cell Distribution Width 14.4 % (11.5-14.5); Segmented Neutrophils % 60.5 %
[2021-08-18 08:19] LABS: BUN/Creatinine Ratio 31 (6-26); Blood Urea Nitrogen 22 mg/dL (8-23); Calcium 8.9 mg/dL (8.6-10.3); Carbon Dioxide 23 mEq/L (23-29); Chloride 104 mEq/L (98-107); Glucose 95 mg/dL (70-105); Osmolality,Calculated 285 (280-300); Potassium 4.4 mEq/L (3.5-5.1); Sodium 136 mEq/L (136-145); eGFR For African Americans > 60 (> 60); eGFR For Non-African Americans > 60 (> 60)
[2021-08-18] MEDS: Multivit/Ca/Min/Fe/FA 1 TAB TABLET PO SCH (09:37)
[2021-08-18] MEDS: Cholecalciferol (D-3) 1,000 UNIT (25MCG) TABLET PO SCH (09:37)
[2021-08-18] MEDS: Lactobacillus 1 EACH CAP.SPRINK PO SCH ×2 (09:37→22:26)
[2021-08-18] MEDS: Metoprolol XL (24 HR) Succ 25 MG TAB.ER.24H PO SCH ×2 (09:37→22:26)
[2021-08-18] MEDS: lisinopriL 5 MG TABLET PO SCH (09:37)
[2021-08-19] MEDS: *HR* Enoxaparin 40 MG/0.4 ML SYRINGE SQ SCH (06:49)
[2021-08-19] MEDS: Lactobacillus 1 EACH CAP.SPRINK PO SCH ×2 (08:40→20:02)
[2021-08-19] MEDS: Cholecalciferol (D-3) 1,000 UNIT (25MCG) TABLET PO SCH (08:40)
[2021-08-19] MEDS: Metoprolol XL (24 HR) Succ 25 MG TAB.ER.24H PO SCH ×2 (08:40→10:40)
[2021-08-19] MEDS: Multivit/Ca/Min/Fe/FA 1 TAB TABLET PO SCH (08:40)
[2021-08-19] MEDS: Ondansetron ODT 4 MG TAB.RAPDIS SL PRN (09:51)
[2021-08-19] MEDS: Acetaminophen 325 MG TABLET PO PRN (20:02)
[2021-08-20] MEDS: *HR* Enoxaparin 40 MG/0.4 ML SYRINGE SQ SCH (05:55)
[2021-08-20] MEDS: Cholecalciferol (D-3) 1,000 UNIT (25MCG) TABLET PO SCH (10:30)
[2021-08-20] MEDS: Multivit/Ca/Min/Fe/FA 1 TAB TABLET PO SCH (10:30)
[2021-08-20] MEDS: Lactobacillus 1 EACH CAP.SPRINK PO SCH ×2 (10:30→20:16)
[2021-08-20] MEDS: Metoprolol XL (24 HR) Succ 25 MG TAB.ER.24H PO SCH (10:30)
[2021-08-20] MEDS: Acetaminophen 325 MG TABLET PO PRN (20:16)
[2021-08-21] MEDS: *HR* Enoxaparin 40 MG/0.4 ML SYRINGE SQ SCH (05:44)
[2021-08-21] MEDS: Multivit/Ca/Min/Fe/FA 1 TAB TABLET PO SCH (10:24)
[2021-08-21] MEDS: Metoprolol XL (24 HR) Succ 25 MG TAB.ER.24H PO SCH (10:24)
[2021-08-21] MEDS: Lactobacillus 1 EACH CAP.SPRINK PO SCH ×2 (10:24→20:58)
[2021-08-21] MEDS: Cholecalciferol (D-3) 1,000 UNIT (25MCG) TABLET PO SCH (10:24)
[2021-08-22] MEDS: *HR* Enoxaparin 40 MG/0.4 ML SYRINGE SQ SCH (05:05)
[2021-08-22] MEDS: Multivit/Ca/Min/Fe/FA 1 TAB TABLET PO SCH (09:36)
[2021-08-22] MEDS: Lactobacillus 1 EACH CAP.SPRINK PO SCH ×2 (09:36→20:06)
[2021-08-22] MEDS: Metoprolol XL (24 HR) Succ 25 MG TAB.ER.24H PO SCH (09:37)
[2021-08-22] MEDS: Cholecalciferol (D-3) 1,000 UNIT (25MCG) TABLET PO SCH (09:50)
[2021-08-23] MEDS: *HR* Enoxaparin 40 MG/0.4 ML SYRINGE SQ SCH (05:46)
[2021-08-23] MEDS: Metoprolol XL (24 HR) Succ 25 MG TAB.ER.24H PO SCH (08:55)
[2021-08-23] MEDS: Cholecalciferol (D-3) 1,000 UNIT (25MCG) TABLET PO SCH (08:55)
[2021-08-23] MEDS: Lactobacillus 1 EACH CAP.SPRINK PO SCH ×2 (08:55→20:15)
[2021-08-23] MEDS: Multivit/Ca/Min/Fe/FA 1 TAB TABLET PO SCH (08:55)
[2021-08-23] MEDS: Ondansetron ODT 4 MG TAB.RAPDIS SL PRN (10:55)
[2021-08-23] MEDS ORDERED: Isovue-370 500 ML BOTTLE IVP ONE (13:49)
[2021-08-23 14:23] LABS: Basophils # 0.1 K/mcL (0.0-0.2); Basophils % 0.6 %; Eosinophils # 0.1 K/mcL (0.0-0.6); Eosinophils % 1.2 %; Hematocrit 41.4 % (37.5-50.1); Hemoglobin 13.9 g/dL (12.9-16.9); Immature Granulocytes % 2.2 % (0-4); Lymphocytes # 1.8 K/mcL (0.6-4.6); Lymphocytes % 16.1 %; Mean Corpuscular HGB Conc 33.6 g/dL (31.6-35.5); Mean Corpuscular Hemoglobin 29.3 pg (28.0-33.3); Mean Corpuscular Volume 87.2 fL (83.0-100.0); Mean Platelet Volume 9.4 fL (9.4-12.4); Monocytes % 9.3 %; Neutrophils # 7.7 K/mcL (1.6-8.9); Platelet Count 318 K/mcL (140-400); Red Blood Count 4.75 M/mcL (4.19-5.50); Red Cell Distribution Width 14.5 % (11.5-14.5); Segmented Neutrophils % 70.6 %; White Blood Count 10.9 K/mcL (4.3-11.1)
[2021-08-23 14:43] LABS: Alanine Aminotransferase 45 Units/L (7-52); Albumin 3.5 g/dL (3.5-5.7); Alkaline Phosphatase 99 Units/L (34-104); Aspartate Amino Transferase 27 Units/L (13-39); BUN/Creatinine Ratio 31 (6-26); Bilirubin,Total 0.7 mg/dL (0.3-1.0); Blood Urea Nitrogen 27 mg/dL (8-23); Calcium 9.3 mg/dL (8.6-10.3); Carbon Dioxide 26 mEq/L (23-29); Chloride 102 mEq/L (98-107); Globulin 3.6 g/dL (2.4-3.5); Glucose 153 mg/dL (70-105); Osmolality,Calculated 288 (280-300); Potassium 4.3 mEq/L (3.5-5.1); Sodium 135 mEq/L (136-145); Total Protein 7.1 g/dL (6.4-8.9); eGFR For African Americans > 60 (> 60); eGFR For Non-African Americans > 60 (> 60)
[2021-08-24] MEDS: *HR* Enoxaparin 40 MG/0.4 ML SYRINGE SQ SCH (05:39)
[2021-08-24] MEDS: Metoprolol XL (24 HR) Succ 25 MG TAB.ER.24H PO SCH (08:32)
[2021-08-24] MEDS: Cholecalciferol (D-3) 1,000 UNIT (25MCG) TABLET PO SCH (08:32)
[2021-08-24] MEDS: Lactobacillus 1 EACH CAP.SPRINK PO SCH ×2 (08:33→22:54)
[2021-08-24] MEDS: Multivit/Ca/Min/Fe/FA 1 TAB TABLET PO SCH (09:18)
[2021-08-25] MEDS: *HR* Enoxaparin 40 MG/0.4 ML SYRINGE SQ SCH (06:23)
[2021-08-25] MEDS: Lactobacillus 1 EACH CAP.SPRINK PO SCH ×2 (09:10→19:25)
[2021-08-25] MEDS: Cholecalciferol (D-3) 1,000 UNIT (25MCG) TABLET PO SCH (09:11)
[2021-08-25] MEDS: Metoprolol XL (24 HR) Succ 25 MG TAB.ER.24H PO SCH ×3 (09:13→09:41)
[2021-08-25] MEDS: Multivit/Ca/Min/Fe/FA 1 TAB TABLET PO SCH (09:16)
[2021-08-26] MEDS: *HR* Enoxaparin 40 MG/0.4 ML SYRINGE SQ SCH (05:30)
[2021-08-26 08:24] LABS: Basophils # 0.1 K/mcL (0.0-0.2); Basophils % 0.7 %; Eosinophils # 0.6 K/mcL (0.0-0.6); Eosinophils % 5.6 %; Hematocrit 44.3 % (37.5-50.1); Hemoglobin 14.2 g/dL (12.9-16.9); Immature Granulocytes % 1.9 % (0-4); Lymphocytes # 2.6 K/mcL (0.6-4.6); Mean Corpuscular HGB Conc 32.1 g/dL (31.6-35.5); Mean Corpuscular Hemoglobin 28.6 pg (28.0-33.3); Mean Corpuscular Volume 89.3 fL (83.0-100.0); Mean Platelet Volume 9.3 fL (9.4-12.4); Monocytes % 9.4 %; Neutrophils # 6.3 K/mcL (1.6-8.9); Platelet Count 335 K/mcL (140-400); Red Blood Count 4.96 M/mcL (4.19-5.50); Red Cell Distribution Width 14.6 % (11.5-14.5); Segmented Neutrophils % 58.4 %; White Blood Count 10.8 K/mcL (4.3-11.1)
[2021-08-26 08:36] LABS: BUN/Creatinine Ratio 28 (6-26); Blood Urea Nitrogen 24 mg/dL (8-23); Calcium 9.4 mg/dL (8.6-10.3); Carbon Dioxide 27 mEq/L (23-29); Chloride 99 mEq/L (98-107); Glucose 102 mg/dL (70-105); Osmolality,Calculated 282 (280-300); Potassium 4.2 mEq/L (3.5-5.1); Sodium 134 mEq/L (136-145); eGFR For African Americans > 60 (> 60); eGFR For Non-African Americans > 60 (> 60)
[2021-08-26] MEDS: Multivit/Ca/Min/Fe/FA 1 TAB TABLET PO SCH (10:09)
[2021-08-26] MEDS: Metoprolol XL (24 HR) Succ 25 MG TAB.ER.24H PO SCH (10:10)
[2021-08-26] MEDS: Lactobacillus 1 EACH CAP.SPRINK PO SCH ×2 (10:10→21:44)
[2021-08-26] MEDS: Cholecalciferol (D-3) 1,000 UNIT (25MCG) TABLET PO SCH (10:10)
[2021-08-27] MEDS: *HR* Enoxaparin 40 MG/0.4 ML SYRINGE SQ SCH (05:01)
[2021-08-27] MEDS: Multivit/Ca/Min/Fe/FA 1 TAB TABLET PO SCH (07:48)
[2021-08-27] MEDS: Cholecalciferol (D-3) 1,000 UNIT (25MCG) TABLET PO SCH (07:48)
[2021-08-27] MEDS: Lactobacillus 1 EACH CAP.SPRINK PO SCH ×2 (07:50→22:10)
[2021-08-27] MEDS: Metoprolol XL (24 HR) Succ 25 MG TAB.ER.24H PO SCH (07:50)
[2021-08-28] MEDS: *HR* Enoxaparin 40 MG/0.4 ML SYRINGE SQ SCH (06:59)
[2021-08-28] MEDS: Multivit/Ca/Min/Fe/FA 1 TAB TABLET PO SCH (07:51)
[2021-08-28] MEDS: Lactobacillus 1 EACH CAP.SPRINK PO SCH ×2 (07:51→21:32)
[2021-08-28] MEDS: Metoprolol XL (24 HR) Succ 25 MG TAB.ER.24H PO SCH (07:52)
[2021-08-28] MEDS: Cholecalciferol (D-3) 1,000 UNIT (25MCG) TABLET PO SCH (07:52)
[2021-08-29] MEDS: *HR* Enoxaparin 40 MG/0.4 ML SYRINGE SQ SCH (05:54)
[2021-08-29 07:55] LABS: Basophils # 0.1 K/mcL (0.0-0.2); Basophils % 1.1 %; Eosinophils # 0.6 K/mcL (0.0-0.6); Eosinophils % 5.6 %; Hematocrit 40.8 % (37.5-50.1); Hemoglobin 13.4 g/dL (12.9-16.9); Immature Granulocytes % 2.6 % (0-4); Lymphocytes # 3.5 K/mcL (0.6-4.6); Lymphocytes % 33.9 %; Mean Corpuscular HGB Conc 32.8 g/dL (31.6-35.5); Mean Corpuscular Hemoglobin 28.8 pg (28.0-33.3); Mean Corpuscular Volume 87.7 fL (83.0-100.0); Mean Platelet Volume 9.4 fL (9.4-12.4); Monocytes # 1.2 K/mcL (0.0-1.3); Monocytes % 11.6 %; Neutrophils # 4.6 K/mcL (1.6-8.9); Platelet Count 263 K/mcL (140-400); Red Blood Count 4.65 M/mcL (4.19-5.50); Red Cell Distribution Width 14.7 % (11.5-14.5); Segmented Neutrophils % 45.2 %; White Blood Count 10.3 K/mcL (4.3-11.1)
[2021-08-29 08:13] LABS: BUN/Creatinine Ratio 25 (6-26); Blood Urea Nitrogen 19 mg/dL (8-23); Calcium 8.9 mg/dL (8.6-10.3); Carbon Dioxide 23 mEq/L (23-29); Chloride 102 mEq/L (98-107); Glucose 100 mg/dL (70-105); Osmolality,Calculated 276 (280-300); Potassium 3.8 mEq/L (3.5-5.1); Sodium 132 mEq/L (136-145); eGFR For African Americans > 60 (> 60); eGFR For Non-African Americans > 60 (> 60)
[2021-08-29] MEDS ORDERED: Melatonin 3 MG TABLET PO PRN (08:29)
[2021-08-29] MEDS: Metoprolol XL (24 HR) Succ 25 MG TAB.ER.24H PO SCH (09:35)
[2021-08-29] MEDS: Cholecalciferol (D-3) 1,000 UNIT (25MCG) TABLET PO SCH (09:35)
[2021-08-29] MEDS: Lactobacillus 1 EACH CAP.SPRINK PO SCH ×2 (09:35→20:32)
[2021-08-29] MEDS: Multivit/Ca/Min/Fe/FA 1 TAB TABLET PO SCH (09:35)
[2021-08-30] MEDS: *HR* Enoxaparin 40 MG/0.4 ML SYRINGE SQ SCH (05:51)
[2021-08-30] MEDS: Lactobacillus 1 EACH CAP.SPRINK PO SCH ×2 (08:34→20:51)
[2021-08-30] MEDS: Cholecalciferol (D-3) 1,000 UNIT (25MCG) TABLET PO SCH (08:35)
[2021-08-30] MEDS: Multivit/Ca/Min/Fe/FA 1 TAB TABLET PO SCH (08:35)
[2021-08-30] MEDS: Metoprolol XL (24 HR) Succ 25 MG TAB.ER.24H PO SCH (08:36)
[2021-08-31] MEDS: *HR* Enoxaparin 40 MG/0.4 ML SYRINGE SQ SCH (06:18)
[2021-08-31] MEDS: Cholecalciferol (D-3) 1,000 UNIT (25MCG) TABLET PO SCH (08:35)
[2021-08-31] MEDS: Metoprolol XL (24 HR) Succ 25 MG TAB.ER.24H PO SCH (08:35)
[2021-08-31] MEDS: Multivit/Ca/Min/Fe/FA 1 TAB TABLET PO SCH (08:35)
[2021-08-31] MEDS: Lactobacillus 1 EACH CAP.SPRINK PO SCH ×2 (08:35→21:16)
[2021-09-01] MEDS: *HR* Enoxaparin 40 MG/0.4 ML SYRINGE SQ SCH (05:42)
[2021-09-01] MEDS: Metoprolol XL (24 HR) Succ 25 MG TAB.ER.24H PO SCH (07:56)
[2021-09-01] MEDS: Multivit/Ca/Min/Fe/FA 1 TAB TABLET PO SCH (07:56)
[2021-09-01] MEDS: Lactobacillus 1 EACH CAP.SPRINK PO SCH ×2 (07:56→19:52)
[2021-09-01] MEDS: Cholecalciferol (D-3) 1,000 UNIT (25MCG) TABLET PO SCH (07:57)
[2021-09-02] MEDS: *HR* Enoxaparin 40 MG/0.4 ML SYRINGE SQ SCH (05:37)
[2021-09-02] MEDS: Multivit/Ca/Min/Fe/FA 1 TAB TABLET PO SCH (07:46)
[2021-09-02] MEDS: Cholecalciferol (D-3) 1,000 UNIT (25MCG) TABLET PO SCH (07:47)
[2021-09-02] MEDS: Metoprolol XL (24 HR) Succ 25 MG TAB.ER.24H PO SCH (07:47)
[2021-09-02] MEDS: Lactobacillus 1 EACH CAP.SPRINK PO SCH ×2 (07:48→19:59)
[2021-09-03] MEDS: *HR* Enoxaparin 40 MG/0.4 ML SYRINGE SQ SCH (06:00)
[2021-09-03] MEDS: Cholecalciferol (D-3) 1,000 UNIT (25MCG) TABLET PO SCH (07:39)
[2021-09-03] MEDS: Multivit/Ca/Min/Fe/FA 1 TAB TABLET PO SCH (07:40)
[2021-09-03] MEDS: Metoprolol XL (24 HR) Succ 25 MG TAB.ER.24H PO SCH (07:40)
[2021-09-03] MEDS: Lactobacillus 1 EACH CAP.SPRINK PO SCH ×2 (07:41→20:56)
[2021-09-03] MEDS: Ondansetron ODT 4 MG TAB.RAPDIS SL PRN (11:51)
[2021-09-04] MEDS: *HR* Enoxaparin 40 MG/0.4 ML SYRINGE SQ SCH (05:35)
[2021-09-04] MEDS: Lactobacillus 1 EACH CAP.SPRINK PO SCH ×2 (07:53→20:11)
[2021-09-04] MEDS: Cholecalciferol (D-3) 1,000 UNIT (25MCG) TABLET PO SCH (07:54)
[2021-09-04] MEDS: Multivit/Ca/Min/Fe/FA 1 TAB TABLET PO SCH (07:55)
[2021-09-04] MEDS: Metoprolol XL (24 HR) Succ 25 MG TAB.ER.24H PO SCH (07:55)
[2021-09-05] MEDS: *HR* Enoxaparin 40 MG/0.4 ML SYRINGE SQ SCH (06:02)
[2021-09-05] MEDS: Cholecalciferol (D-3) 1,000 UNIT (25MCG) TABLET PO SCH (07:15)
[2021-09-05] MEDS: Multivit/Ca/Min/Fe/FA 1 TAB TABLET PO SCH (07:18)
[2021-09-05] MEDS: Lactobacillus 1 EACH CAP.SPRINK PO SCH ×2 (07:18→20:14)
[2021-09-05] MEDS: Metoprolol XL (24 HR) Succ 25 MG TAB.ER.24H PO SCH (07:19)
[2021-09-05] MEDS: Ondansetron ODT 4 MG TAB.RAPDIS SL PRN (07:43)
[2021-09-05 08:10] LABS: Basophils # 0.1 K/mcL (0.0-0.2); Basophils % 0.5 %; Eosinophils # 0.3 K/mcL (0.0-0.6); Hematocrit 39.6 % (37.5-50.1); Hemoglobin 13.2 g/dL (12.9-16.9); Immature Granulocytes % 0.8 % (0-4); Lymphocytes # 3.4 K/mcL (0.6-4.6); Lymphocytes % 31.7 %; Mean Corpuscular HGB Conc 33.3 g/dL (31.6-35.5); Mean Corpuscular Hemoglobin 29.3 pg (28.0-33.3); Mean Corpuscular Volume 87.8 fL (83.0-100.0); Mean Platelet Volume 8.8 fL (9.4-12.4); Monocytes % 9.2 %; Neutrophils # 5.9 K/mcL (1.6-8.9); Platelet Count 277 K/mcL (140-400); Red Blood Count 4.51 M/mcL (4.19-5.50); Red Cell Distribution Width 15.3 % (11.5-14.5); Segmented Neutrophils % 54.8 %; White Blood Count 10.7 K/mcL (4.3-11.1)
[2021-09-05 08:23] LABS: BUN/Creatinine Ratio 21 (6-26); Blood Urea Nitrogen 16 mg/dL (8-23); Calcium 9.1 mg/dL (8.6-10.3); Carbon Dioxide 25 mEq/L (23-29); Chloride 103 mEq/L (98-107); Glucose 110 mg/dL (70-105); Osmolality,Calculated 282 (280-300); Potassium 3.9 mEq/L (3.5-5.1); Sodium 135 mEq/L (136-145); eGFR For African Americans > 60 (> 60); eGFR For Non-African Americans > 60 (> 60)
[2021-09-06] MEDS: *HR* Enoxaparin 40 MG/0.4 ML SYRINGE SQ SCH (04:18)
[2021-09-06] MEDS: Cholecalciferol (D-3) 1,000 UNIT (25MCG) TABLET PO SCH (08:50)
[2021-09-06] MEDS: Lactobacillus 1 EACH CAP.SPRINK PO SCH ×2 (08:50→20:22)
[2021-09-06] MEDS: Metoprolol XL (24 HR) Succ 25 MG TAB.ER.24H PO SCH (08:51)
[2021-09-07] MEDS: *HR* Enoxaparin 40 MG/0.4 ML SYRINGE SQ SCH (06:48)
[2021-09-07 07:25] VITALS: BP 127/71; PULSE 88; RESP 17; TEMP 97.5; O2SAT 94
[2021-09-07] MEDS: Metoprolol XL (24 HR) Succ 25 MG TAB.ER.24H PO SCH (08:56)
[2021-09-07] MEDS: Cholecalciferol (D-3) 1,000 UNIT (25MCG) TABLET PO SCH (08:56)
[2021-09-07] MEDS: Lactobacillus 1 EACH CAP.SPRINK PO SCH (08:56)
[2021-09-07] MEDS ORDERED: FLU Vac QV 21-22 (6Month+)/PF 0.5 ML SYRINGE IM ONE (11:05)
== END 2021-09-07 13:19 | DRG 177 ==
LOC: INPPIK 17:48
PROVIDERS: ADMIT Internal Medicine; ATTEND Internal Medicine

== ENCOUNTER 2022-01-03 06:46 | Observation (INO) ==
[2022-01-03] MEDS ORDERED: Ondansetron 4 MG/2 ML VIAL IVP ONE (07:00)
[2022-01-03] MEDS ORDERED: 0.9 % Sodium Chloride 1,000 ML IVC ONE (07:00)
[2022-01-03] MEDS ORDERED: Pantoprazole 40 MG VIAL IVP ONE (07:14)
[2022-01-03 07:30] LABS: Basophils % 0.3 %; Hematocrit 45.7 % (37.5-50.1); Hemoglobin 15.6 g/dL (12.9-16.9); Immature Granulocytes % 0.6 % (0-4); Mean Corpuscular HGB Conc 34.1 g/dL (31.6-35.5); Mean Corpuscular Hemoglobin 28.5 pg (28.0-33.3); Mean Corpuscular Volume 83.4 fL (83.0-100.0); Mean Platelet Volume 9.5 fL (9.4-12.4); Monocytes # 1.5 K/mcL (0.0-1.3); Monocytes % 9.3 %; Neutrophils # 13.2 K/mcL (1.6-8.9); Platelet Count 169 K/mcL (140-400); Red Blood Count 5.48 M/mcL (4.19-5.50); Red Cell Distribution Width 13.4 % (11.5-14.5); Segmented Neutrophils % 83.8 %; White Blood Count 15.7 K/mcL (4.3-11.1)
[2022-01-03 07:33] LABS: Basophils # 0.1 K/mcL (0.0-0.2); Lymphocytes # 0.9 K/mcL (0.6-4.6)
[2022-01-03 07:46] LABS: Alanine Aminotransferase 15 Units/L (7-52); Albumin/Globulin Ratio 1.4 (1.1-2.2); Alkaline Phosphatase 51 Units/L (34-104); Aspartate Amino Transferase 18 Units/L (13-39); BUN/Creatinine Ratio 15 (6-26); Bilirubin,Total 1.3 mg/dL (0.3-1.0); Blood Urea Nitrogen 15 mg/dL (8-23); Calcium 9.1 mg/dL (8.6-10.3); Carbon Dioxide 24 mEq/L (23-29); Chloride 103 mEq/L (98-107); Globulin 2.9 g/dL (2.4-3.5); Glucose 165 mg/dL (70-105); Osmolality,Calculated 289 (280-300); Potassium 3.7 mEq/L (3.5-5.1); Sodium 137 mEq/L (136-145); Total Protein 6.9 g/dL (6.4-8.9); eGFR For African Americans > 60 (> 60); eGFR For Non-African Americans > 60 (> 60)
[2022-01-03] MEDS ORDERED: Azithromycin 500 MG in 0.9 % Sodium Chloride 250 ML IVPB ONE (08:09)
[2022-01-03] MEDS ORDERED: cefTRIAXone 2,000 MG in 0.9 % Sodium Chloride Mini Bag 100 ML IVPB ONE (08:09)
[2022-01-03 09:40] LABS: Bilirubin,Urine Negative (Negative); Blood,Urine Large (Negative); Clarity,Urine Cloudy (Clear); Color,Urine Yellow (Yellow); Glucose,Urine (UA) Normal (Normal); Ketones,Urine Trace mg/dL (Negative); Leukocyte Esterase,Urine Moderate (Negative); Nitrite,Urine Positive (Negative); PH,Urine 7.5 pH Units (5.0-8.0); Protein,Urine 100 mg/dL (Neg-Trace); Urobilinogen,Urine Normal (Normal)
[2022-01-03 09:50] LABS: Bacteria,Urine Many per hpf (None-Few); Squamous Epithelial Cell,Urine Few per hpf (None-Few); WBC,Urine 30-50 per hpf (0-3)
[2022-01-03] MEDS ORDERED: Acetaminophen 325 MG TABLET PO PRN (10:03)
[2022-01-03] MEDS ORDERED: Ondansetron 4 MG/2 ML VIAL IVP PRN (10:03)
[2022-01-03] MEDS ORDERED: Naloxone 0.4 MG/ML INJ IVP PRN (10:03)
[2022-01-03] MEDS ORDERED: Ipratropium/Albuterol Neb 3 ML IH PRN (10:22)
[2022-01-03] MEDS: Metoprolol XL (24 HR) Succ 25 MG TAB.ER.24H PO SCH (11:28)
[2022-01-03] MEDS: 0.9 % Sodium Chloride 1,000 ML IVC SCH (11:28)
[2022-01-03] MEDS: Melatonin 3 MG TABLET PO PRN (22:19)
[2022-01-03] MEDS: Lactobacillus 1 EACH CAP.SPRINK PO SCH (22:19)
[2022-01-04] MEDS: 0.9 % Sodium Chloride 1,000 ML IVC SCH (00:50)
[2022-01-04] MEDS: Azithromycin 500 MG in 0.9 % Sodium Chloride 250 ML IVPB SCH (06:33)
[2022-01-04 08:14] LABS: Basophils % 0.2 %; Eosinophils # 0.2 K/mcL (0.0-0.6); Eosinophils % 1.7 %; Hematocrit 38.2 % (37.5-50.1); Hemoglobin 12.5 g/dL (12.9-16.9); Immature Granulocytes % 0.9 % (0-4); Lymphocytes # 2.1 K/mcL (0.6-4.6); Lymphocytes % 16.4 %; Mean Corpuscular HGB Conc 32.7 g/dL (31.6-35.5); Mean Corpuscular Hemoglobin 28.7 pg (28.0-33.3); Mean Corpuscular Volume 87.8 fL (83.0-100.0); Mean Platelet Volume 9.2 fL (9.4-12.4); Neutrophils # 9.1 K/mcL (1.6-8.9); Platelet Count 140 K/mcL (140-400); Red Blood Count 4.35 M/mcL (4.19-5.50); Red Cell Distribution Width 14.1 % (11.5-14.5); Segmented Neutrophils % 71.8 %; White Blood Count 12.7 K/mcL (4.3-11.1)
[2022-01-04 08:25] LABS: Monocytes # 1.1 K/mcL (0.0-1.3)
[2022-01-04 08:46] LABS: BUN/Creatinine Ratio 16 (6-26); Blood Urea Nitrogen 14 mg/dL (8-23); Calcium 8.3 mg/dL (8.6-10.3); Carbon Dioxide 28 mEq/L (23-29); Chloride 108 mEq/L (98-107); Glucose 89 mg/dL (70-105); Magnesium 1.7 mg/dL (1.6-2.6); Osmolality,Calculated 290 (280-300); Potassium 3.8 mEq/L (3.5-5.1); Sodium 140 mEq/L (136-145); eGFR For African Americans > 60 (> 60); eGFR For Non-African Americans > 60 (> 60)
[2022-01-04] MEDS: Metoprolol XL (24 HR) Succ 25 MG TAB.ER.24H PO SCH (10:09)
[2022-01-04] MEDS: Lactobacillus 1 EACH CAP.SPRINK PO SCH ×2 (10:10→20:50)
[2022-01-04] MEDS: cefTRIAXone 2,000 MG in 0.9 % Sodium Chloride Mini Bag 100 ML IVPB SCH (10:10)
[2022-01-04] MEDS ORDERED: Dextrose Gel 15 GM/37.5 ML TUBE PO PRN ×2 (11:11)
[2022-01-04] MEDS ORDERED: *HR* Dextrose 50 % in Water (Syg) 50 ML SYRINGE IVP PRN (11:11)
[2022-01-04] MEDS ORDERED: D5% in Water 1,000 ML IVC PRN (11:11)
[2022-01-04] MEDS: Insulin LISPRO 300 UNITS/3 ML VIAL SUBQ SCH ×2 (12:29→17:14)
[2022-01-04] MEDS: Melatonin 3 MG TABLET PO PRN (20:50)
[2022-01-05] MEDS: Azithromycin 500 MG in 0.9 % Sodium Chloride 250 ML IVPB SCH ×2 (06:24→09:14)
[2022-01-05 07:32] VITALS: BP 131/67; PULSE 63; RESP 17; TEMP 98.3; O2SAT 94
[2022-01-05 07:42] LABS: Hematocrit 34.9 % (37.5-50.1); Hemoglobin 11.8 g/dL (12.9-16.9); Mean Corpuscular HGB Conc 33.8 g/dL (31.6-35.5); Mean Corpuscular Hemoglobin 28.8 pg (28.0-33.3); Mean Corpuscular Volume 85.1 fL (83.0-100.0); Mean Platelet Volume 9.5 fL (9.4-12.4); Platelet Count 147 K/mcL (140-400); Red Cell Distribution Width 13.7 % (11.5-14.5); White Blood Count 10.8 K/mcL (4.3-11.1)
[2022-01-05 08:00] LABS: BUN/Creatinine Ratio 13 (6-26); Blood Urea Nitrogen 9 mg/dL (8-23); Calcium 8.4 mg/dL (8.6-10.3); Carbon Dioxide 26 mEq/L (23-29); Chloride 104 mEq/L (98-107); Glucose 94 mg/dL (70-105); Osmolality,Calculated 282 (280-300); Potassium 3.4 mEq/L (3.5-5.1); Sodium 137 mEq/L (136-145); eGFR For African Americans > 60 (> 60); eGFR For Non-African Americans > 60 (> 60)
[2022-01-05] MEDS: cefTRIAXone 2,000 MG in 0.9 % Sodium Chloride Mini Bag 100 ML IVPB SCH (09:15)
[2022-01-05] MEDS: Insulin LISPRO 300 UNITS/3 ML VIAL SUBQ SCH ×3 (09:16→16:40)
[2022-01-05] MEDS: Lactobacillus 1 EACH CAP.SPRINK PO SCH (09:45)
[2022-01-05] MEDS: Metoprolol XL (24 HR) Succ 25 MG TAB.ER.24H PO SCH (09:45)
[2022-01-05] MEDS ORDERED: Ertapenem 1,000 MG in 0.9 % Sodium Chloride Mini Bag 100 ML IVPB SCH (10:00)
[2022-01-05 14:19] LABS: Influenza A PCR Negative (Negative); Influenza B PCR Negative (Negative); Resp. Syncytial Virus PCR Negative (Negative); SARS-CoV-2 by PCR (In House) Negative (Negative)
== END 2022-01-05 18:04 ==
LOC: INPPIK 06:46 → EMEROOPIK 06:46 → INPPIK 11:17
PROVIDERS: ADMIT Family Medicine; ATTEND Family Medicine